=== PATIENT | male | born 1930 | race Caucasian/White ===

== ENCOUNTER 2016-02-27 20:46 | Inpatient (IN) | payer MEDICARE ==
[2016-02-27] MEDS ORDERED: SODIUM CHLORIDE 0.9% 1,000 ML IV STA (20:54)
[2016-02-27] MEDS ORDERED: SODIUM CHLORIDE 0.9% 500 ML IV STA (20:54)
[2016-02-27 21:18] LABS: Basophils % (A) 1 %; CH 29.5; CHCM 30.9; Eosinophils # (A) 0.1 k/uL (0-0.7); Eosinophils % (A) 2 %; HDW 3.22; Hypochromasia Marked; Luc # (Auto) 0.08; Luc % (Auto) 2; Lymphocytes # (A) 0.6 k/uL (1.0-4.8); Lymphocytes % (A) 15 %; MCH 29.3 pg (25.0-35.0); MCHC 30.6 g/dL (31.0-37.0); MCV 95.7 fL (80.0-100.0); Mean Platelet Volume 8.9; Monocytes # (A) 0.3 k/uL (0-1.0); Monocytes % (A) 7 %; Neutrophils # (A) 2.7 k/uL (1.3-7.7); Neutrophils % (A) 73 %; RBC 2.19 m/uL (4.30-5.90); RDW 15.5 % (11.5-15.5); WBC 3.7 k/uL (3.8-10.6); WBC (Perox) 3.84
[2016-02-27 21:20] LABS: HGB 6.4 gm/dL (13.0-17.5); Magnesium 2.3 mg/dL (1.6-2.3); Potassium 5.5 mmol/L (3.5-5.1); Total Bilirubin 0.2 mg/dL (0.2-1.3); Total Protein 5.6 g/dL (6.3-8.2)
[2016-02-27 21:33] LABS: Creatine Kinase <20 U/L (55-170)
[2016-02-27 21:50] LABS: Troponin I 0.124 ng/mL (0.000-0.034)
--- NOTE | 2016-02-27 22:09 | ED ---
Recheck HPI - General Chief Complaint: Recheck/Abnormal Lab/Rx Stated Complaint: Abnormal Labs Time Seen by Provider: 02/27/16 20:53 Source: EMS Mode of arrival: EMS Limitations: no limitations - History of Present Illness Initial Comments: Assessment from a local detention with the very low hemoglobin is hemoglobin is 6.2 today unfortunately we don't have any records of him and are electronic medical records and didn't receive or bulge of information from the detention either except his medication list his medication list includes aspirin and Plavix is a question of him being on Coumadin as well, he had his hemoglobin done twice today when earlier today and once in the hospital. He himself denies any symptoms he denies any headaches he is legally blind but his heels alert oriented able to answer questions via system negative for any headaches no chest pain or shortness of breath or abdominal pain no frequency urgency dysuria he does have a indwelling Prajapati catheter - Related Data Home Medications Medication Instructions Recorded Confirmed Acetaminophen Tab [Tylenol Tab] 650 mg PO Q4H PRN 02/27/16 02/27/16 Allopurinol [Zyloprim] 100 mg PO DAILY 02/27/16 02/27/16 Aspirin [Adult Low Dose Aspirin EC] 81 mg PO DAILY 02/27/16 02/27/16 Atorvastatin [Lipitor] 20 mg PO HS 02/27/16 02/27/16 Cholecalciferol (Vitamin D3) 10,000 unit PO MOFR 02/27/16 02/27/16 [Vitamin D3] Clopidogrel [Plavix] 75 mg PO DAILY 02/27/16 02/27/16 Ensure Clear 1 can PO TID-W/MEALS 02/27/16 02/27/16 Ferrous Sulfate Tablet 27mg 27 mg PO DAILY 02/27/16 02/27/16 HYDROcodone/APAP 5-325MG [[place] 1 tab PO TID PRN 02/27/16 02/27/16 5-325] Ipratropium-Albuterol Nebulize 3 ml INHALATION RT-Q4H PRN 02/27/16 02/27/16 [Duoneb 0.5 mg-3 mg/3 ml Soln] Lactulose 10 gm PO DAILY PRN 02/27/16 02/27/16 Nitroglycerin Sl Tabs [Nitrostat] 0.4 mg SUBLINGUAL Q5M PRN 02/27/16 02/27/16 Sevelamer [Renvela] 800 mg PO AC-TID 02/27/16 02/27/16 Tamsulosin [Flomax] 0.4 mg PO HS 02/27/16 02/27/16 Torsemide [Demadex] 40 mg PO DAILY 02/27/16 02/27/16 Triad Cream 1 applic TOPICAL HS PRN 02/27/16 02/27/16 rOPINIRole HCL [Requip] 1 mg PO HS 02/27/16 02/27/16 Allergies Allergy/AdvReac Type Severity Reaction Status Date / Time No Known Allergies Allergy Verified 02/27/16 21:03 Review of Systems ROS Statement: Those systems with pertinent positive or pertinent negative responses have been documented in the HPI. ROS Other: All systems not noted in ROS Statement are negative. Past Medical History Past Medical History: Hyperlipidemia, Vascular Disorder Additional Past Medical History / Comment(s): kidney disease, pressure ulcer stage 2-coccyx, generalized weakness, legally blind History of Any Multi-Drug Resistant Organisms: Unobtainable Past Surgical History: Unable to Obtain Past Psychological History: No Psychological Hx Reported Smoking Status: Current some day smoker Past Alcohol Use History: None Reported Past Drug Use History: None Reported General Exam - General Exam Comments Initial Comments: General: The patient is awake and alert, in no distress, GCS is 15 Skin: Skin is warm and dry and no rashes or lesions are noted. Eye: Extraocular muscles are intact Ears, nose, mouth and throat: There are moist mucous membranes and no oral lesions. Neck: The neck is supple, there is no tenderness or JVD. Cardiovascular: There is a regular rate and rhythm. No murmur, rub or gallop is appreciated. Respiratory: To auscultation bilateral, decreased breath sounds at the bases Gastrointestinal: Soft, non-distended, non-tender abdomen without masses or organomegaly noted. There is no rebound or guarding present. Bowel sounds are unremarkable. Rectal exam was done, he has a dressing on his sacrococcygeal area for his chronic ulcer of blood was noticed did notice some stool in the rectum Back: There is no tenderness to palpation in the midline. There is no obvious deformity. Musculoskeletal: Normal ROM, no tenderness, There is no pedal edema. There is no calf tenderness or swelling. No cords were appreciated. Neurological: CN II-XII intact, Cranial nerves III through XII are intact. There are no obvious motor or sensory deficits. Coordination appears grossly intact. Speech is normal. Psychiatric: Cooperative, appropriate mood & affect, normal judgment. Limitations: no limitations Course Vital Signs 02/27/16 02/27/16 02/27/16 20:48 22:30 23:06 Temperature 98.1 F 98.7 F Pulse Rate 80 84 83 Respiratory 18 18 18 Rate Blood Pressure 160/70 142/63 144/67 O2 Sat by Pulse 98 99 97 Oximetry 02/27/16 23:18 Temperature 98.1 F Pulse Rate 84 Respiratory 18 Rate Blood Pressure 148/69 O2 Sat by Pulse 97 Oximetry EKG is normal sinus rhythm ventricular rate is 82 HI interval is 190 QRS duration is 88 QT/QTc is 386/450. This EKG shows T-wave inversion in lead 1 to aVL and a T-wave inversion in V5 and V6 Medical Decision Making - Lab Data Result diagrams: 02/27/16 21:00 02/27/16 21:00 Lab Results 02/27/16 02/27/16 02/27/16 Range/Units 21:00 21:00 21:00 WBC 3.7 L (3.8-10.6) k/uL RBC 2.19 L (4.30-5.90) m/uL Hgb 6.4 L* (13.0-17.5) gm/dL Hct 21.0 L (39.0-53.0) % MCV 95.7 (80.0-100.0) fL MCH 29.3 (25.0-35.0) pg MCHC 30.6 L (31.0-37.0) g/dL RDW 15.5 (11.5-15.5) % Plt Count 208 (150-450) k/uL Neutrophils % 73 % Lymphocytes % 15 % Monocytes % 7 % Eosinophils % 2 % Basophils % 1 % Neutrophils # 2.7 (1.3-7.7) k/uL Lymphocytes # 0.6 L (1.0-4.8) k/uL Monocytes # 0.3 (0-1.0) k/uL Eosinophils # 0.1 (0-0.7) k/uL Basophils # 0.0 (0-0.2) k/uL Hypochromasia Marked APTT (22.0-30.0) sec Sodium 140 (137-145) mmol/L Potassium 5.5 H (3.5-5.1) mmol/L Chloride 104 (98-107) mmol/L Carbon Dioxide 26 (22-30) mmol/L Anion Gap 10 mmol/L BUN 119 H* (9-20) mg/dL Creatinine 4.04 H (0.66-1.25) mg/dL Est GFR (MDRD) Af Amer 17 (>60 ml/min/1.73 sqM) Est GFR (MDRD) Non-Af 14 (>60 ml/min/1.73 sqM) Glucose 166 H (74-99) mg/dL Calcium 8.0 L (8.4-10.2) mg/dL Magnesium 2.3 (1.6-2.3) mg/dL Total Bilirubin 0.2 (0.2-1.3) mg/dL AST 11 L (17-59) U/L ALT 27 (21-72) U/L Alkaline Phosphatase 59 (38-126) U/L Total Creatine Kinase <20 L (55-170) U/L CK-MB (CK-2) 1.0 (0.0-2.4) ng/mL CK-MB (CK-2) Rel Index 0.0 Troponin I 0.124 H* (0.000-0.034) ng/mL Total Protein 5.6 L (6.3-8.2) g/dL Albumin 2.6 L (3.5-5.0) g/dL Lipase 17 L (23-300) U/L Stool Occult Blood (Negative) Blood Type Blood Type Confirm Blood Type Recheck Antibody Screen Crossmatch Spec Expiration Date 02/27/16 02/27/16 02/27/16 Range/Units 21:00 21:00 21:08 WBC (3.8-10.6) k/uL RBC (4.30-5.90) m/uL Hgb (13.0-17.5) gm/dL Hct (39.0-53.0) % MCV (80.0-100.0) fL MCH (25.0-35.0) pg MCHC (31.0-37.0) g/dL RDW (11.5-15.5) % Plt Count (150-450) k/uL Neutrophils % % Lymphocytes % % Monocytes % % Eosinophils % % Basophils % % Neutrophils # (1.3-7.7) k/uL Lymphocytes # (1.0-4.8) k/uL Monocytes # (0-1.0) k/uL Eosinophils # (0-0.7) k/uL Basophils # (0-0.2) k/uL Hypochromasia APTT 22.2 (22.0-30.0) sec Sodium (137-145) mmol/L Potassium (3.5-5.1) mmol/L Chloride (98-107) mmol/L Carbon Dioxide (22-30) mmol/L Anion Gap mmol/L BUN (9-20) mg/dL Creatinine (0.66-1.25) mg/dL Est GFR (MDRD) Af Amer (>60 ml/min/1.73 sqM) Est GFR (MDRD) Non-Af (>60 ml/min/1.73 sqM) Glucose (74-99) mg/dL Calcium (8.4-10.2) mg/dL Magnesium (1.6-2.3) mg/dL Total Bilirubin (0.2-1.3) mg/dL AST (17-59) U/L ALT (21-72) U/L Alkaline Phosphatase (38-126) U/L Total Creatine Kinase (55-170) U/L CK-MB (CK-2) (0.0-2.4) ng/mL CK-MB (CK-2) Rel Index Troponin I (0.000-0.034) ng/mL Total Protein (6.3-8.2) g/dL Albumin (3.5-5.0) g/dL Lipase (23-300) U/L Stool Occult Blood Negative (Negative) Blood Type A Positive Blood Type Confirm Blood Type Recheck CABO Indicated Antibody Screen NEGATIVE Crossmatch See Detail Spec Expiration Date 03/01/2016 - 229902/27/16 Range/Units 22:09 WBC (3.8-10.6) k/uL RBC (4.30-5.90) m/uL Hgb (13.0-17.5) gm/dL Hct (39.0-53.0) % MCV (80.0-100.0) fL MCH (25.0-35.0) pg MCHC (31.0-37.0) g/dL RDW (11.5-15.5) % Plt Count (150-450) k/uL Neutrophils % % Lymphocytes % % Monocytes % % Eosinophils % % Basophils % % Neutrophils # (1.3-7.7) k/uL Lymphocytes # (1.0-4.8) k/uL Monocytes # (0-1.0) k/uL Eosinophils # (0-0.7) k/uL Basophils # (0-0.2) k/uL Hypochromasia APTT (22.0-30.0) sec Sodium (137-145) mmol/L Potassium (3.5-5.1) mmol/L Chloride (98-107) mmol/L Carbon Dioxide (22-30) mmol/L Anion Gap mmol/L BUN (9-20) mg/dL Creatinine (0.66-1.25) mg/dL Est GFR (MDRD) Af Amer (>60 ml/min/1.73 sqM) Est GFR (MDRD) Non-Af (>60 ml/min/1.73 sqM) Glucose (74-99) mg/dL Calcium (8.4-10.2) mg/dL Magnesium (1.6-2.3) mg/dL Total Bilirubin (0.2-1.3) mg/dL AST (17-59) U/L ALT (21-72) U/L Alkaline Phosphatase (38-126) U/L Total Creatine Kinase (55-170) U/L CK-MB (CK-2) (0.0-2.4) ng/mL CK-MB (CK-2) Rel Index Troponin I (0.000-0.034) ng/mL Total Protein (6.3-8.2) g/dL Albumin (3.5-5.0) g/dL Lipase (23-300) U/L Stool Occult Blood (Negative) Blood Type Blood Type Confirm A Positive Blood Type Recheck Antibody Screen Crossmatch Spec Expiration Date Disposition Clinical Impression: Symptomatic anemia, Myocardial infarction, Renal failure, Hyperkalemia Disposition: ADMITTED IP TO THIS [facility] Condition: Poor Referrals: Todd Ackerman MD [Primary Care Provider] - 1-2 days
[2016-02-27] MEDS ORDERED: MORPHINE SULFATE 2 MG/ML SYRINGE IVP PRN (23:36)
[2016-02-27] MEDS ORDERED: NITROGLYCERIN SL TABS 0.4 MG TAB SUBLINGUAL PRN (23:36)
[2016-02-27] MEDS ORDERED: IPRATROPIUM-ALBUTEROL 3 ML NEB INHALATION PRN (23:43)
[2016-02-27] MEDS ORDERED: ACETAMINOPHEN TAB 325 MG TAB PO PRN (23:43)
[2016-02-27] MEDS ORDERED: LACTULOSE 20 GM/30 ML CUP PO PRN (23:43)
[2016-02-27] MEDS ORDERED: ZINC OXIDE 20% OINT 28.4 GM TUBE TOPICAL PRN (23:43)
--- NOTE | 2016-02-28 00:05 | XR ---
EXAMINATION TYPE: XR chest 1V portable DATE OF EXAM: 02/27/2016 11:52 PM COMPARISON: 02/20/2016 HISTORY: Chest pain TECHNIQUE: Single frontal view of the chest is obtained. FINDINGS: Heart is enlarged. There is blunting of right costophrenic angle and consolidation at the right lung base. There is mild pulmonary vascular congestion. There are no definite hilar masses. Bon y thorax appears intact. IMPRESSION: Mild congestive heart failure with right pleural effusion and right lower lobe pneumonia . This appears new compared to last exam.
[2016-02-28] MEDS ORDERED: NON-FORMULARY DRUG (Ensure Clear 1 CAN) PO SCH (07:30)
[2016-02-28 07:48] LABS: Cholesterol 104 mg/dL (<200); HDL Cholesterol 42 mg/dL (40-60); Triglycerides 112 mg/dL (<150)
[2016-02-28 07:57] LABS: Creatine Kinase <20 U/L (55-170)
[2016-02-28 08:10] LABS: Creatine Kinase MB 0.9 ng/mL (0.0-2.4)
[2016-02-28 08:18] LABS: Troponin I 0.112 ng/mL (0.000-0.034)
[2016-02-28 08:24] LABS: Calcium 8.3 mg/dL (8.4-10.2); Potassium 5.6 mmol/L (3.5-5.1)
[2016-02-28 08:33] LABS: Anisocytosis Slight; CH 29.8; HCT 27.1 % (39.0-53.0); HDW 3.87; Hypochromasia Moderate; MCH 29.5 pg (25.0-35.0); MCHC 31.4 g/dL (31.0-37.0); MCV 93.9 fL (80.0-100.0); Mean Platelet Volume 8.1; Poikilocytosis Slight; RBC 2.89 m/uL (4.30-5.90); RDW 16.5 % (11.5-15.5)
[2016-02-28 08:40] LABS: HGB 8.5 gm/dL (13.0-17.5)
[2016-02-28] MEDS ORDERED: FERROUS SULFATE 325 MG TAB PO SCH (09:00)
[2016-02-28] MEDS ORDERED: ASPIRIN 325 MG TAB PO SCH (09:00)
[2016-02-28] MEDS: SEVELAMER 800 MG TAB PO SCH ×3 (09:14→17:25)
[2016-02-28] MEDS: HYDROcodone/APAP 5-325MG 1 EACH TAB PO PRN ×2 (09:14→17:23)
[2016-02-28] MEDS: METOPROLOL TARTRATE 25 MG TAB PO SCH ×2 (09:14→21:04)
--- NOTE | 2016-02-28 09:32 | P.CRDCN ---
History of Present Illness Consult date: 02/28/16 Chief complaint: Weakness History of present illness: This is a pleasant 86-year-old gentleman who is blind and lives in assisted living with a past medical history significant for carotid disease, hypertension , and dyslipidemia was brought to the emergency room because he was feeling weak. Lately the patient has been falling a lot but he never lost consciousness. He did not experience any symptoms of chest pain or chest discomfort or difficulty breathing or heart racing or fluttering. In the ER the patient was found to be severely anemic with a hemoglobin around 6 where he received 2 units of packed RBC with significant improvement in the hemoglobin. Beside that he was found to be in acute renal failure. The patient was receiving dual antiplatelet therapy with aspirin and Plavix as an outpatient and I think that is because of the carotid artery disease. Overall he is feeling better now. The Plavix was stopped which I would agree. Currently he is on aspirin, statin, on beta maylin. I will obtain an echocardiogram to assess the LV function. The cardiac enzymes were checked and came in to be slightly abnormal and also the EKG showed sinus rhythm with T- wave inversion in the lateral leads. The EKG changes are likely ischemic but that secondary to the severity anemia. Overall the patient is not a candidate to have invasive approach. I would consider medical treatment and follow-up with him. Past Medical History Past Medical History: Hyperlipidemia, Vascular Disorder Additional Past Medical History / Comment(s): kidney disease, pressure ulcer stage 2-coccyx, generalized weakness, legally blind History of Any Multi-Drug Resistant Organisms: Unobtainable Past Surgical History: Unable to Obtain Past Anesthesia/Blood Transfusion Reactions: No Reported Reaction Past Psychological History: No Psychological Hx Reported Smoking Status: Current some day smoker Past Alcohol Use History: None Reported Past Drug Use History: None Reported Medications and Allergies Home Medications Medication Instructions Recorded Confirmed Type Acetaminophen Tab [Tylenol Tab] 650 mg PO Q4H PRN 02/27/16 02/27/16 History Allopurinol [Zyloprim] 100 mg PO DAILY 02/27/16 02/27/16 History Aspirin [Adult Low Dose Aspirin EC] 81 mg PO DAILY 02/27/16 02/27/16 History Atorvastatin [Lipitor] 20 mg PO HS 02/27/16 02/27/16 History Cholecalciferol (Vitamin D3) 10,000 unit PO MOFR 02/27/16 02/27/16 History [Vitamin D3] Clopidogrel [Plavix] 75 mg PO DAILY 02/27/16 02/27/16 History Ensure Clear 1 can PO TID-W/MEALS 02/27/16 02/27/16 History Ferrous Sulfate Tablet 27mg 27 mg PO DAILY 02/27/16 02/27/16 History HYDROcodone/APAP 5-325MG [[place] 1 tab PO TID PRN 02/27/16 02/27/16 History 5-325] Ipratropium-Albuterol Nebulize 3 ml INHALATION RT-Q4H PRN 02/27/16 02/27/16 History [Duoneb 0.5 mg-3 mg/3 ml Soln] Lactulose 10 gm PO DAILY PRN 02/27/16 02/27/16 History Nitroglycerin Sl Tabs [Nitrostat] 0.4 mg SUBLINGUAL Q5M PRN 02/27/16 02/27/16 History Sevelamer [Renvela] 800 mg PO AC-TID 02/27/16 02/27/16 History Tamsulosin [Flomax] 0.4 mg PO HS 02/27/16 02/27/16 History Torsemide [Demadex] 40 mg PO DAILY 02/27/16 02/27/16 History Triad Cream 1 applic TOPICAL HS PRN 02/27/16 02/27/16 History rOPINIRole HCL [Requip] 1 mg PO HS 02/27/16 02/27/16 History Allergies Allergy/AdvReac Type Severity Reaction Status Date / Time No Known Allergies Allergy Verified 02/27/16 21:03 Physical Exam Vitals: Vital Signs Temp Pulse Pulse Resp BP BP Pulse Ox 02/28/16 08:00 98.5 F 92 164/77 92 L 02/28/16 03:48 98.2 F 81 18 155/66 99 02/28/16 03:09 98.0 F 80 16 155/68 99 02/28/16 02:39 98.0 F 79 16 157/70 98 02/28/16 02:29 98.0 F 80 16 157/69 98 02/28/16 02:06 98.0 F 79 16 157/69 99 02/28/16 00:24 76 16 138/65 98 02/28/16 00:05 98.0 F 77 18 138/65 99 02/27/16 23:48 97.8 F 78 18 149/63 96 02/27/16 23:18 98.1 F 84 18 148/69 97 Intake and Output 02/27/16 02/28/16 02/28/16 22:59 06:59 14:59 Intake Total 620 Balance 620 Intake: Blood Product 620 Rc As-1 Unit 310 [id number] Rc As-1 Unit 310 [id number] Other: Voiding Method Indwelling Catheter Weight 63.503 kg - Constitutional General appearance: no acute distress - Respiratory Respiratory: bilateral: diminished - Cardiovascular Rhythm: regular Heart sounds: normal: S1, S2 Results 02/28/16 07:20 02/28/16 07:20 Cardiac Enzymes 02/28/16 Range/Units 07:20 CK-MB (CK-2) 0.9 (0.0-2.4) ng/mL Troponin I 0.112 H* (0.000-0.034) ng/mL Lipids 02/28/16 Range/Units 07:20 Triglycerides 112 (<150) mg/dL Cholesterol 104 (<200) mg/dL HDL Cholesterol 42 (40-60) mg/dL CBC 02/28/16 Range/Units 07:20 WBC 4.0 (3.8-10.6) k/uL RBC 2.89 L (4.30-5.90) m/uL Hgb 8.5 L D (13.0-17.5) gm/dL Hct 27.1 L (39.0-53.0) % Plt Count 206 (150-450) k/uL Comprehensive Metabolic Panel 02/28/16 Range/Units 07:20 Sodium 143 (137-145) mmol/L Potassium 5.6 H (3.5-5.1) mmol/L Chloride 110 H (98-107) mmol/L Carbon Dioxide 23 (22-30) mmol/L BUN 119 H* (9-20) mg/dL Creatinine 3.74 H (0.66-1.25) mg/dL Glucose 93 (74-99) mg/dL Calcium 8.3 L (8.4-10.2) mg/dL Current Medications Generic Name Dose Route Start Last Admin Trade Name Freq PRN Reason Stop Dose Admin Acetaminophen 650 mg 02/27/16 23:43 Tylenol Tab PO Q4H PRN Mild Pain Acetaminophen/Hydrocodone [place]art 1 each 02/27/16 23:43 02/28/16 09:14 [place] 5-325 PO 1 each TID PRN Administration Moderate-Severe Pain Albuterol/Ipratropium 3 ml 02/27/16 23:43 Duoneb 0.5 Mg-3 Mg/3 Ml Soln INHALATION RT-Q4H PRN Shortness Of Breath Aspirin 325 mg 02/28/16 09:00 02/28/16 09:14 Aspirin PO 325 mg DAILY [facility] Administration Atorvastatin Calcium 40 mg 02/28/16 21:00 Lipitor PO HS [facility] Cholecalciferol 10,000 unit 03/02/16 09:00 Vitamin D3 PO MoFr@0900 [facility] Ferrous Sulfate 162.5 mg 02/28/16 09:00 02/28/16 09:14 Feosol PO 162.5 mg DAILY [facility] Administration Lactulose 10 gm 02/27/16 23:43 Cephulac PO DAILY PRN Constipation Metoprolol Tartrate 25 mg 02/28/16 09:00 02/28/16 09:14 Lopressor PO 25 mg BID [facility] Administration Morphine Sulfate 2 mg 02/27/16 23:36 Morphine Sulfate (Inj) IVP Q5M PRN Chest Pain Multi-Ingredient Ointment 1 applic 02/27/16 23:43 Zinc Oxide 20% Oint TOPICAL HS PRN [facility] Nitroglycerin 0.4 mg 02/27/16 23:36 Nitrostat SUBLINGUAL Q5M PRN Chest Pain Ropinirole HCl 1 mg 02/28/16 21:00 Requip PO HS [facility] Sevelamer Carbonate 800 mg 02/28/16 07:30 02/28/16 09:14 Renvela PO 800 mg AC-TID [facility] Administration Tamsulosin HCl 0.4 mg 02/28/16 21:00 Flomax PO HS [facility] Intake and Output 02/27/16 02/28/16 02/28/16 22:59 06:59 14:59 Intake Total 620 Balance 620 Intake: Blood Product 620 Rc As-1 Unit 310 [id number] Rc As-1 Unit 310 [id number] Other: Voiding Method Indwelling Catheter Weight 63.503 kg 02/28/16 07:20 02/28/16 07:20 Assessment and Plan Plan: Assessment #1 severe anemia #2 acute renal failure #3 acute nondistended secondary to the anemia #4 severity carotid artery disease #5 multiple comorbid conditions you Plan #1 agree about the aspirin, statin, beta maylin #2 conservative medical approach for this gentleman #3 obtain an echocardiogram was Doppler #4 monitor the hemoglobin and kidney function #5 follow-up with the patient
--- NOTE | 2016-02-28 11:48 | P.CONS ---
History of Present Illness - Reason for Consult Consult date: 02/28/16 anemia possible GI bleed Requesting physician: Solo Mcginnis - History of Present Illness 86-year-old gentleman patient Dr. Ackerman with a past medical history of chronic kidney disease, legally blind, hyperlipidemia, carotid disease; aspirin Plavix therapy, and nicotine cigarette dependency. Admitted from [facility] with weakness and recent falling. Hemoglobin 6.4. MCV 95. Platelet 208. PTT 22. BUN 119. Creatinine 4.0. Transfuse 2 units repeat hemoglobin 8.5. No overt bleeding such as hematemesis, hematochezia, or melena. Patient intubated EGD colonoscopy in the past with been more than 5 years. Other than aspirin and Plavix he does not take any additional antiplatelet or NSAID medications. Patient is blind therefore he cannot state if his bowel movements are black or red. Denies vomiting, fever, or chills. Review of Systems All systems: negative (See HPI) Past Medical History Past Medical History: Hyperlipidemia, Vascular Disorder Additional Past Medical History / Comment(s): kidney disease, pressure ulcer stage 2-coccyx, generalized weakness, legally blind History of Any Multi-Drug Resistant Organisms: Unobtainable Past Surgical History: Unable to Obtain Past Anesthesia/Blood Transfusion Reactions: No Reported Reaction Past Psychological History: No Psychological Hx Reported Smoking Status: Current some day smoker Past Alcohol Use History: None Reported Past Drug Use History: None Reported Medications and Allergies Home Medications Medication Instructions Recorded Confirmed Type Acetaminophen Tab [Tylenol Tab] 650 mg PO Q4H PRN 02/27/16 02/27/16 History Allopurinol [Zyloprim] 100 mg PO DAILY 02/27/16 02/27/16 History Aspirin [Adult Low Dose Aspirin EC] 81 mg PO DAILY 02/27/16 02/27/16 History Atorvastatin [Lipitor] 20 mg PO HS 02/27/16 02/27/16 History Cholecalciferol (Vitamin D3) 10,000 unit PO MOFR 02/27/16 02/27/16 History [Vitamin D3] Clopidogrel [Plavix] 75 mg PO DAILY 02/27/16 02/27/16 History Ensure Clear 1 can PO TID-W/MEALS 02/27/16 02/27/16 History Ferrous Sulfate Tablet 27mg 27 mg PO DAILY 02/27/16 02/27/16 History HYDROcodone/APAP 5-325MG [[place] 1 tab PO TID PRN 02/27/16 02/27/16 History 5-325] Ipratropium-Albuterol Nebulize 3 ml INHALATION RT-Q4H PRN 02/27/16 02/27/16 History [Duoneb 0.5 mg-3 mg/3 ml Soln] Lactulose 10 gm PO DAILY PRN 02/27/16 02/27/16 History Nitroglycerin Sl Tabs [Nitrostat] 0.4 mg SUBLINGUAL Q5M PRN 02/27/16 02/27/16 History Sevelamer [Renvela] 800 mg PO AC-TID 02/27/16 02/27/16 History Tamsulosin [Flomax] 0.4 mg PO HS 02/27/16 02/27/16 History Torsemide [Demadex] 40 mg PO DAILY 02/27/16 02/27/16 History Triad Cream 1 applic TOPICAL HS PRN 02/27/16 02/27/16 History rOPINIRole HCL [Requip] 1 mg PO HS 02/27/16 02/27/16 History Allergies Allergy/AdvReac Type Severity Reaction Status Date / Time No Known Allergies Allergy Verified 02/27/16 21:03 Physical Exam Vitals: Vital Signs Temp Pulse Pulse Resp BP BP Pulse Ox 02/28/16 08:00 98.5 F 92 164/77 92 L 02/28/16 03:48 98.2 F 81 18 155/66 99 02/28/16 03:09 98.0 F 80 16 155/68 99 02/28/16 02:39 98.0 F 79 16 157/70 98 02/28/16 02:29 98.0 F 80 16 157/69 98 02/28/16 02:06 98.0 F 79 16 157/69 99 02/28/16 00:24 76 16 138/65 98 02/28/16 00:05 98.0 F 77 18 138/65 99 02/27/16 23:48 97.8 F 78 18 149/63 96 02/27/16 23:18 98.1 F 84 18 148/69 97 Intake and Output 02/27/16 02/28/16 02/28/16 22:59 06:59 14:59 Intake Total 620 Balance 620 Intake: Blood Product 620 Rc As-1 Unit 310 [id number] As-1 Unit 310 [id number] Other: Voiding Method Indwelling Catheter Indwelling Catheter Weight 63.503 kg General appearance: The patient is alert, oriented, in no acute distress. Legally blind. HET: Head is normocephalic and atraumatic. Pupils are equal and reactive. Oropharynx is clear without lesions. Neck: Supple without lymphadenopathy. Trachea midline. Heart: S1 S2. Regular rate and rhythm. Lungs: No crackles or wheezes are heard. Abdomen: Soft, nontender, nondistended with bowel sounds. No peritoneal signs. No palpable organomegaly or masses. Extremities: Normal skin color and turgor. No cyanosis, rash, ulceration, clubbing, or edema. Radial and pedal pulses are 2/4 bilaterally. Prajapati clear yellow urine. Neurological: No focal deficits. Strength and sensation are grossly intact. Results CBC & Chem 7: 02/28/16 07:20 02/28/16 07:20 Labs: Abnormal Lab Results - Last 24 Hours (Table) 02/28/16 02/28/16 02/28/16 Range/Units 07:20 07:20 07:20 RBC 2.89 L (4.30-5.90) m/uL Hgb 8.5 L D (13.0-17.5) gm/dL Hct 27.1 L (39.0-53.0) % RDW 16.5 H (11.5-15.5) % Potassium 5.6 H (3.5-5.1) mmol/L Chloride 110 H (98-107) mmol/L BUN 119 H* (9-20) mg/dL Creatinine 3.74 H (0.66-1.25) mg/dL Calcium 8.3 L (8.4-10.2) mg/dL Total Creatine Kinase <20 L (55-170) U/L Troponin I 0.112 H* (0.000-0.034) ng/mL Assessment and Plan Plan: Impression: 1. 86-year-old gentleman with underlying chronic kidney disease admitted with symptomatic anemia with weakness and recent falls hemoglobin 6.4 Hemoccult- negative stool without overt signs or symptoms of bleeding rule out occult GI loss. 2. Acute on chronic anemia possible acute blood loss. 3. Legally blind. Plan: 1. Patient is DO NOT RESUSCITATE and would like to proceed with recommended procedures. Advised EGD colonoscopy; will plan for . Continue to monitor CBC, continue GI prophylaxis. Hold iron supplementation for endoscopic procedures. May proceed with aspirin therapy as long as patient does not develop acute GI bleeding. We'll start bowel prep tomorrow afternoon. The general agent has discussed the risks, benefits and alternative therapies for the above-mentioned procedure and for both sedation/analgesia as well as necessary blood product administration, if indicated, as they pertain to this patient. The patient has indicated understanding and acceptance of the risks and procedures discussed. Thank you for this kind referral and the opportunity to participate in the care of your patient. This consultation was discussed with Dr. Alejandro. The impression and plan of care have been directed as dictated.
[2016-02-28] MEDS: ALLOPURINOL 100 MG TAB PO SCH (13:03)
[2016-02-28] MEDS: TORSEMIDE 20 MG TAB PO SCH (13:03)
--- NOTE | 2016-02-28 13:32 | P.NPCON ---
History of Present Illness - Reason for Consult Consult date: 02/28/16 acute renal failure - Chief Complaint Acute kidney injury - History of Present Illness This is an 86-year-old custodial resident who was brought in because of low hemoglobin and worsening creatinine. He is not aware of any previous kidney disease. He isn't a poor historian although he is able to give me a fair amount of information but his memory is not very reliable. He denies any complaints. Denies any fever chills cough shortness of breath nausea vomiting diarrhea. He does admit to having lost his appetite over the last several months. He is mostly bedridden for several months. Is unable to me how long he has been in the custodial. There is no knowledge of him being on any nonsteroidals Bactrim or any other nephrotoxic medications On admission his hemoglobin was 6.4 white count 3780 count 28,000, sodium 140, 5.5, 104, 96 BUN was 119 and creatinine is 4.04 calcium is 8. He has a Prajapati catheter and he has made 620 mL of urine so far in the ER. His creatinine also has improved 3.74 within a few hours in the ER. Past Medical History Past Medical History: Hyperlipidemia, Vascular Disorder Additional Past Medical History / Comment(s): kidney disease, pressure ulcer stage 2-coccyx, generalized weakness, legally blind History of Any Multi-Drug Resistant Organisms: Unobtainable Past Surgical History: Unable to Obtain Past Anesthesia/Blood Transfusion Reactions: No Reported Reaction Past Psychological History: No Psychological Hx Reported Smoking Status: Current some day smoker Past Alcohol Use History: None Reported Past Drug Use History: None Reported Medications and Allergies Home Medications Medication Instructions Recorded Confirmed Type Acetaminophen Tab [Tylenol Tab] 650 mg PO Q4H PRN 02/27/16 02/27/16 History Allopurinol [Zyloprim] 100 mg PO DAILY 02/27/16 02/27/16 History Aspirin [Adult Low Dose Aspirin EC] 81 mg PO DAILY 02/27/16 02/27/16 History Atorvastatin [Lipitor] 20 mg PO HS 02/27/16 02/27/16 History Cholecalciferol (Vitamin D3) 10,000 unit PO MOFR 02/27/16 02/27/16 History [Vitamin D3] Clopidogrel [Plavix] 75 mg PO DAILY 02/27/16 02/27/16 History Ensure Clear 1 can PO TID-W/MEALS 02/27/16 02/27/16 History Ferrous Sulfate Tablet 27mg 27 mg PO DAILY 02/27/16 02/27/16 History HYDROcodone/APAP 5-325MG [[place] 1 tab PO TID PRN 02/27/16 02/27/16 History 5-325] Ipratropium-Albuterol Nebulize 3 ml INHALATION RT-Q4H PRN 02/27/16 02/27/16 History [Duoneb 0.5 mg-3 mg/3 ml Soln] Lactulose 10 gm PO DAILY PRN 02/27/16 02/27/16 History Nitroglycerin Sl Tabs [Nitrostat] 0.4 mg SUBLINGUAL Q5M PRN 02/27/16 02/27/16 History Sevelamer [Renvela] 800 mg PO AC-TID 02/27/16 02/27/16 History Tamsulosin [Flomax] 0.4 mg PO HS 02/27/16 02/27/16 History Torsemide [Demadex] 40 mg PO DAILY 02/27/16 02/27/16 History Triad Cream 1 applic TOPICAL HS PRN 02/27/16 02/27/16 History rOPINIRole HCL [Requip] 1 mg PO HS 02/27/16 02/27/16 History Allergies Allergy/AdvReac Type Severity Reaction Status Date / Time No Known Allergies Allergy Verified 02/27/16 21:03 Physical Exam Vitals: Vital Signs Temp Pulse Pulse Resp BP BP Pulse Ox 02/28/16 12:00 70 148/65 95 02/28/16 08:00 98.5 F 92 164/77 92 L 02/28/16 03:48 98.2 F 81 18 155/66 99 02/28/16 03:09 98.0 F 80 16 155/68 99 02/28/16 02:39 98.0 F 79 16 157/70 98 02/28/16 02:29 98.0 F 80 16 157/69 98 02/28/16 02:06 98.0 F 79 16 157/69 99 02/28/16 00:24 76 16 138/65 98 02/28/16 00:05 98.0 F 77 18 138/65 99 02/27/16 23:48 97.8 F 78 18 149/63 96 02/27/16 23:18 98.1 F 84 18 148/69 97 Intake and Output 02/27/16 02/28/16 02/28/16 22:59 06:59 14:59 Intake Total 620 Balance 620 Intake: Blood Product 620 As-1 Unit 310 [id number] As-1 Unit 310 [id number] Other: Voiding Method Indwelling Catheter Indwelling Catheter Weight 63.503 kg On examination is awake alert oriented. HEENT exam no JVP lymphadenopathy thyromegaly no carotid bruit neck is supple no facial asymmetry No nodes in the axilla groin neck. Lungs are clear to auscultation on the right there are some coarse crackles at bases. Supposedly has had pleural effusion in the past. Heart sounds are unremarkable for any murmur rub gallop Abdomen soft nontender no organomegaly status masses Extremity exam was no edema Awake alert oriented. There is mild erythema of both his feet and loss of hair suggestive of poor circulation. Neurologically awake alert oriented. No focal motor deficit Results - Lab Results Most recent lab results Calcium 8.3 mg/dL (8.4-10.2) L 02/28/16 07:20 Magnesium 2.3 mg/dL (1.6-2.3) 02/27/16 21:00 02/28/16 07:20 02/28/16 07:20 Assessment and Plan Plan: Impression. 1. Elevated creatinine at 4 on admission no previous creatinines available likely acute kidney injury and chronic kidney disease. Cause of acute kidney injury is not clear possibly volume depletion secondary to poor intake, no documented low blood pressures. 2. Mild degree of non-gap acidosis bicarbonate 23 gap is 10. Secondary acute kidney injury. 3. Hemoglobin 6.4 severe anemia. Cause not very clear rule out GI malignancy. 3. Mild hyperkalemia secondary acute kidney injury 5. Small amount of right base effusion and possible atelectasis rule out pneumonia. Recommendation. 1. Agree with gentle hydration normal saline at 75 an hour. 2. Panculture and antibiotics. 3. Watch potassium expected to improve with IV normal saline. 4. Obtain urine analysis. 5. Obtain ultrasound of the kidney. 6. Follow labs
[2016-02-28 14:00] LABS: Creatine Kinase <20 U/L (55-170)
[2016-02-28 14:12] LABS: Creatine Kinase MB 0.8 ng/mL (0.0-2.4)
--- NOTE | 2016-02-28 15:24 | HP ---
DATE OF ADMISSION: 02/27/2016 PRESENTING COMPLAINT: Low hemoglobin. HISTORY OF PRESENTING COMPLAINT: This 86-year-old patient of Dr. Ackerman, a resident of [facility]. The patient's chronic, stable medical conditions include congestive heart failure, chronic kidney disease, diabetes mellitus type 2, hypertension, anemia of chronic disease, emphysema, ( ) peripheral artery disease, increased cholesterol. Patient was sent for hemoglobin of 6.2. Patient legally blind, not sure if he has any dark stools. Patient is being transfused blood. Denies any abdominal pain. Patient has decreased appetite, rundown. Pretty much in bed all the time he states. Patient is a smoker. REVIEW OF SYSTEMS: CONSTITUTIONAL: Tired. HEENT: Legally blind. RESPIRATORY: Baseline short of breath. CARDIOVASCULAR: None. GASTROINTESTINAL: Lower abdominal pain. GENITOURINARY: Prajapati catheter for 2 months. DERMATOLOGICAL: Stage II decubitus ulcer. HEMATOLOGICAL: As above. PSYCHIATRY: None. NEUROLOGICAL: None. Past medical history of CHF, chronic kidney disease, diabetes type 2, hypertension, anemia of chronic disease, emphysema, stage II decubitus, peripheral artery disease, hypercholesterolemia, urinary outflow obstruction with a chronic Prajapati catheter. PAST SURGICAL HISTORY: Patient does not remember. SOCIAL HISTORY: The patient smokes a 1-1/2 pack a day. Resident of the [facility]. Denies alcohol history. FAMILY HISTORY: Reviewed, noncontributory to presentation. HOME MEDICATIONS: 1. Triad cream topical q.h.s. p.r.n. 2. Tylenol 650 mg p.o. q.4 p.r.n. 3. Nitrostat 0.4 sublingual q.5 p.r.n. 4. Lactulose 10 gm p.o. daily p.r.n. 5. [place] 5 one tablet p.o. t.i.d. p.r.n. 6. Demadex 40 mg p.o. daily. 7. Renvela 800 mg p.o. a.c. t.i.d. 8. DuoNeb q.4 p.r.n. 9. Ensure 1 can p.o. t.i.d. with meals. 10. Requip 1 mg p.o. q.h.s. 11. Flomax 0.4 mg p.o. q.h.s. 12. Plavix 75 mg p.o. daily. 13. Iron 27 mg p.o. daily. 14. Vitamin D3 ten thousand units on Saturday and Saturday. 15. Lipitor 20 mg p.o. q.h.s. 16. Aspirin 81 mg p.o. daily. 17. Allopurinol 100 mg p.o. daily. On examination, vital signs on presentation: Temperature 98.1, pulse 80, respirations 18, blood pressure 160/70, pulse ox 98 on 4 L. GENERAL APPEARANCE: Thin-build, lying in bed, tired-appearing. EYES: Pupils equal. Conjunctivae are pale. HEENT: External appearance of nose and ears normal. Oral cavity normal. NECK: JVD not raised. Mass not palpable. Respiratory effort normal. LUNGS: Diminished breath sounds. CARDIOVASCULAR: First and second sounds normal. No edema. ABDOMEN: Soft, nontender. Liver and spleen not palpable. LYMPHATIC: No lymph node palpable in neck or axillae. PSYCHIATRY: Alert and oriented x3. Mood and affect normal. NEUROLOGICAL: Pupils equal. Cranial nerves grossly intact. Power and sensation grossly intact. DERMATOLOGICAL: Stage II ulcer on the lower back. INVESTIGATIONS: White count 3.7, hemoglobin 6.4, after transfusion 8.5, potassium 5.5, BUN 109, creatinine 4.04. Troponin 0.124, albumin 2.6. ASSESSMENT: 1. Acute severe anemia, rule out gastrointestinal bleed with a contribution to chronic kidney disease. 2. Chronic kidney disease, stage IV, stage from underlying nephrosclerosis. 3. Chronic congestive heart failure, ejection fraction not known. 4. Essential hypertension, chronic. 5. Anemia of chronic disease secondary to chronic kidney disease. 6. Emphysema, in a smoker. 7. Chronic nicotine dependence. Patient is an active cigarette smoker. 8. Stage II sacral decubitus ulcer. 9. Peripheral artery disease. 10. Hypercholesterolemia. 11. ( ). 12. Restless leg syndrome. PLAN: GI was consulted, we are contemplating an endoscopy, will also get a Nephrology opinion. Home medications will be resumed. Patient's troponin leak is nonsignificant with the setting of renal failure with no cardiac symptoms. The patient's antiplatelet agents will be held in view of potential GI bleed. Care was discussed with the patient.
[2016-02-28] MEDS: IPRATROPIUM-ALBUTEROL 3 ML NEB INHALATION SCH ×2 (15:36→19:22)
--- NOTE | 2016-02-28 15:49 | US ---
EXAMINATION TYPE: US renals and bladder DATE OF EXAM: 02/28/2016 3:35 PM COMPARISON: NONE CLINICAL HISTORY: LIZBETH. 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 Left Kidney: lower pole partially obscured by bowel, no hydro or masses seen. Bladder: not seen, patient has catheter Incidental note is made of gallstones Incidental note is made of left pleural effusion There is no evidence for hydronephrosis at this point in time. No masses are identified on images stephanie ed. The urinary bladder is suboptimally evaluated due to Prajapati catheter. Exam is suboptimal due to portable technique. Increased cortical echogenicity is felt present bilater ally. No gross hydronephrosis is noted. Bladder is suboptimally evaluated with Prajapati catheter in plac e. IMPRESSION: No gross hydronephrosis is evident bilaterally. Normal Values: Renal Length = 9 - 12cm Bladder Wall: < 0.3cm
[2016-02-28 16:46] LABS: Appearance,Urine Clear (Clear); Bilirubin,Urine Negative (Negative); Glucose,Urine (UA) Negative (Negative); Ketones,Urine Negative (Negative); Leukocyte Esterase,Urine Large (Negative); Mucus,Urine Rare /hpf; Nitrite,Urine Negative (Negative); Particle Count 4147; Protein,Urine Trace (Negative); RBC,Urine <1 /hpf (0-5); Specific Gravity,Urine 1.008 (1.001-1.035); Squamous Epithelial Cell,Urine <1 /hpf (0-4); UA Billing (MACRO vs. MICRO) MICRO; Urobilinogen,Urine <2.0 mg/dL (<2.0); WBC,Urine 38 /hpf (0-5)
[2016-02-28] MEDS: SODIUM CHLORIDE 0.9% 1,000 ML IV SCH (17:24)
[2016-02-28 19:58] LABS: Glucose,Whole Blood 140 mg/dL (75-99)
[2016-02-28] MEDS: INSULIN LISPRO (humaLOG) 300 UNIT/3 ML VIAL SQ SCH (21:03)
[2016-02-28] MEDS: ATORVASTATIN 40 MG TAB PO SCH (21:03)
[2016-02-28] MEDS: TAMSULOSIN 0.4 MG CAP.ER.24H PO SCH (21:04)
[2016-02-28 22:41] LABS: Hemoglobin A1C 5.1 % (4.2-6.1)
[2016-02-29] MEDS: SODIUM CHLORIDE 0.9% 1,000 ML IV SCH ×2 (05:44→11:44)
[2016-02-29 07:07] LABS: Glucose,Whole Blood 113 mg/dL (75-99)
[2016-02-29] MEDS: INSULIN LISPRO (humaLOG) 300 UNIT/3 ML VIAL SQ SCH ×4 (08:21→22:31)
[2016-02-29] MEDS: SEVELAMER 800 MG TAB PO SCH ×3 (08:22→18:00)
[2016-02-29] MEDS: METOPROLOL TARTRATE 25 MG TAB PO SCH ×2 (08:23→22:30)
[2016-02-29] MEDS: ALLOPURINOL 100 MG TAB PO SCH (08:23)
[2016-02-29] MEDS: TORSEMIDE 20 MG TAB PO SCH (08:23)
[2016-02-29] MEDS: IPRATROPIUM-ALBUTEROL 3 ML NEB INHALATION SCH ×4 (08:28→20:08)
--- NOTE | 2016-02-29 09:44 | P.PN ---
Subjective Principal diagnosis: Anemia Nursing reports no episodes of GI bleeding. Tolerating diet. Denies abdominal pain. Objective - Vital Signs Vital signs: Vital Signs Temp 98.8 F 02/29/16 07:00 Pulse 74 02/29/16 08:00 Resp 18 02/29/16 08:00 BP 146/70 02/29/16 07:00 Pulse Ox 93 L 02/29/16 07:00 Intake & Output 02/28/16 02/29/16 02/29/16 18:59 06:59 18:59 Intake Total 1065 Output Total 4600 Balance -3535 Intake: IV 825 Sodium Chloride 0.9% 1, 825 000 ml @ 75 mls/hr IV . [id number] [facility] Rx#:[id number] Oral 240 Output: Urine 4600 Uretheral (Prajapati) 2800 Other: Voiding Method Indwelling Catheter Indwelling Catheter Indwelling Catheter - Exam General appearance: The patient is alert, in no acute distress. HET: Head is normocephalic and atraumatic. Pupils are equal and reactive. Oropharynx is clear without lesions. Neck: Supple without lymphadenopathy. Trachea midline. Heart: S1 S2. Regular rate and rhythm. Lungs: No crackles or wheezes are heard. Abdomen: Soft, nontender, nondistended with bowel sounds. No peritoneal signs. No palpable organomegaly or masses. Extremities: Normal skin color and turgor. No cyanosis, rash, ulceration, clubbing, or edema. Radial and pedal pulses are 2/4 bilaterally. Neurological: No focal deficits. Strength and sensation are grossly intact. - Labs CBC & Chem 7: 02/28/16 07:20 02/28/16 07:20 Labs: Abnormal Lab Results - Last 24 Hours (Table) 02/28/16 02/28/16 02/28/16 Range/Units 13:03 16:03 19:57 POC Glucose (mg/dL) 140 H (75-99) mg/dL Total Creatine Kinase <20 L (55-170) U/L Troponin I 0.120 H* (0.000-0.034) ng/mL Urine Protein Trace H (Negative) Ur Leukocyte Esterase Large H (Negative) Urine WBC 38 H (0-5) /hpf Urine Mucus Rare H (None) /hpf 02/29/16 Range/Units 07:05 POC Glucose (mg/dL) 113 H (75-99) mg/dL Total Creatine Kinase (55-170) U/L Troponin I (0.000-0.034) ng/mL Urine Protein (Negative) Ur Leukocyte Esterase (Negative) Urine WBC (0-5) /hpf Urine Mucus (None) /hpf Microbiology - Last 24 Hours (Table) 02/28/16 16:03 Urine Culture - Preliminary Urine,Catheterized Assessment and Plan Plan: Impression: 1. 86-year-old gentleman with underlying chronic kidney disease admitted with symptomatic anemia with weakness and recent falls hemoglobin 6.4 Hemoccult- negative stool without overt signs or symptoms of bleeding rule out occult GI loss. 2. Acute on chronic anemia possible acute blood loss. 3. Legally blind. Plan: 1. EGD colonoscopy tomorrow. 2. Iron indices. Assessment and plan of care discussed with Dr. Alejandro.
[2016-02-29] MEDS: HYDROcodone/APAP 5-325MG 1 EACH TAB PO PRN ×2 (11:08→22:46)
[2016-02-29 11:41] LABS: Glucose,Whole Blood 130 mg/dL (75-99)
[2016-02-29 14:04] LABS: % Iron Saturation 36.2 % (20-50)
[2016-02-29] MEDS ORDERED: PEG 3350-NA SULF,BICARB,CL/KCL 4,000 ML BOTTLE PO ONE (15:00)
--- NOTE | 2016-02-29 15:37 | P.PN ---
Subjective Principal diagnosis: This is a 86-year-old male seen in consultation because of acute kidney injury. He has an indwelling Prajapati catheter. He came in because of anemia and worsening creatinine. A poor historian therefore his memory and history is unreliable. Yesterday he was started on IV fluids. His main 4 L of urine. I spoke to the nursing staff he confirmed that he is eating about 25-30% of meals. Patient is somewhat sleepy and reluctant to answer my questions but supposedly he is awake alert oriented 3 otherwise. Objective - Vital Signs Vital signs: Vital Signs Temp 97.9 F 02/29/16 15:00 Pulse 63 02/29/16 15:00 Resp 18 02/29/16 15:00 BP 136/67 02/29/16 15:00 Pulse Ox 95 02/29/16 15:00 Intake & Output 02/28/16 02/29/16 02/29/16 18:59 06:59 18:59 Intake Total 1065 200 Output Total 4600 Balance -3535 200 Weight 63.503 kg Intake: IV 825 Sodium Chloride 0.9% 1, 825 000 ml @ 75 mls/hr IV . [id number] [facility] Rx#:[id number] Oral 240 200 Output: Urine 4600 Uretheral (Prajapati) 2800 Other: Voiding Method Indwelling Catheter Indwelling Catheter Indwelling Catheter Examination sleepy arousable. HEENT exam no JVP neck is supple no facial asymmetry Lungs are clear to auscultation percussion fair air entry Heart sounds are unremarkable for any murmur rub gallop. Abdomen soft nontender no organomegaly status masses Extremity exam reveals no edema Neurologically sleepy therefore difficult exam but cardiac nursing staff he is awake alert oriented and has no focal motor deficit. - Labs CBC & Chem 7: 02/28/16 07:20 02/28/16 07:20 Labs: Abnormal Lab Results - Last 24 Hours (Table) 02/28/16 02/28/16 02/29/16 Range/Units 16:03 19:57 07:05 POC Glucose (mg/dL) 140 H 113 H (75-99) mg/dL Urine Protein Trace H (Negative) Ur Leukocyte Esterase Large H (Negative) Urine WBC 38 H (0-5) /hpf Urine Mucus Rare H (None) /hpf 02/29/16 Range/Units 11:40 POC Glucose (mg/dL) 130 H (75-99) mg/dL Urine Protein (Negative) Ur Leukocyte Esterase (Negative) Urine WBC (0-5) /hpf Urine Mucus (None) /hpf Microbiology - Last 24 Hours (Table) 02/28/16 16:03 Urine Culture - Preliminary Urine,Catheterized Assessment and Plan Plan: Impression. 1. Elevated creatinine at 4 on admission no previous creatinines available likely acute kidney injury and chronic kidney disease. Cause of acute kidney injury is not clear possibly volume depletion secondary to poor intake, no documented low blood pressures. He has a chronic indwelling Prajapati catheter. Today's labs are pending. A urinalysis is unremarkable except for trace proteinuria large leukocyte Estrace 38 WBCs urine culture is pending 2. Mild degree of non-gap acidosis bicarbonate 23 gap is 10. Secondary acute kidney injury. 3. Hemoglobin 6.4 severe anemia. Cause not very clear rule out GI malignancy. 3. Mild hyperkalemia secondary acute kidney injury. Potassium is 5.6 as of this morning with a blood sugar of 93 bicarb is 23 therefore this is all from acute kidney injury 5. Small amount of right base effusion and possible atelectasis rule out pneumonia. 6. Possible urinary tract infection based on UA Recommendation. 1. Agree with gentle hydration normal saline at 75 an hour. Continue Lasix to improve his potassium together with saline 2. Panculture and antibiotics. 3. Watch potassium expected to improve with IV normal saline. 4. Urine cultures are pending to rule out any urine tract infectiond of the kidney. 6. Follow labs
[2016-02-29 17:09] LABS: Glucose,Whole Blood 209 mg/dL (75-99)
[2016-02-29 20:20] LABS: Glucose,Whole Blood 120 mg/dL (75-99)
--- NOTE | 2016-02-29 21:50 | PN ---
DATE OF SERVICE: 02/29/2016 PRESENTING COMPLAINT: Anemia. INTERVAL HISTORY: This is a patient presented with severe anemia, transfused blood, felt to be primarily from underlying chronic kidney disease, GI bleed is being ruled out pending endoscopy. The patient is stable. No chest pain. Does feel tired. REVIEW OF SYSTEMS: Done for constitutional, cardiovascular, GI, pulmonary; relevant findings as above. Current medications are reviewed. On examination, temperature 97.9, pulse 60, respirations 18, blood pressure 136/67, pulse ox 95% on 2 liters. GENERAL APPEARANCE: Lying in bed, tired -appearing. EYES: Pupils equal. Conjunctivae normal. NECK: JVD not raised. Mass not palpable. RESPIRATORY: Effort normal. LUNGS: Diminished breath sounds. CARDIOVASCULAR: First and second sounds normal. No edema. ABDOMEN: Soft and nontender. Liver and spleen not palpable. PSYCHIATRY: Awake, answering simple questions. INVESTIGATIONS: No blood work from today. ASSESSMENT: 1. Acute severe anemia rule gastrointestinal bleed with a contribution of chronic kidney disease. 2. Chronic kidney disease, stage IV from underlying nephrosclerosis. 3. Chronic congestive heart failure, ejection fraction not known. 4. Essential hypertension, chronic. 5. Anemia of chronic kidney disease secondary to chronic kidney disease. 6. Emphysema, in a smoker. 7. Chronic nicotine dependence. Patient is a cigarette smoker. 8. Stage II sacral decubitus ulcer. 9. Peripheral artery disease. 10. Hypercholesterolemia. 11. Restless leg syndrome. 12. 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 PLAN: Continue current medication and treatment plan. Awaiting endoscopy. Overall prognosis guarded.
[2016-02-29] MEDS: ATORVASTATIN 40 MG TAB PO SCH (22:30)
[2016-02-29] MEDS: TAMSULOSIN 0.4 MG CAP.ER.24H PO SCH (22:30)
[2016-03-01] MEDS: IPRATROPIUM-ALBUTEROL 3 ML NEB INHALATION SCH ×4 (07:47→19:45)
[2016-03-01 08:00] LABS: Glucose,Whole Blood 84 mg/dL (75-99)
[2016-03-01 08:03] LABS: Calcium 8.2 mg/dL (8.4-10.2)
--- NOTE | 2016-03-01 08:56 | P.PN ---
Subjective Principal diagnosis: Anemia Nursing reports no episodes of GI bleeding. Patient drank entire bowel prep less than however he is still passing brown colored bowel movements. Objective - Vital Signs Vital signs: Vital Signs Temp 97.8 F 02/29/16 21:50 Pulse 74 03/01/16 07:58 Resp 16 02/29/16 21:50 BP 158/69 02/29/16 21:50 Pulse Ox 96 02/29/16 21:50 Intake & Output 02/29/16 03/01/16 03/01/16 18:59 06:59 18:59 Intake Total 200 2325 Output Total 500 Balance 200 1825 Weight 63.503 kg Intake: IV 825 Sodium Chloride 0.9% 1, 825 000 ml @ 75 mls/hr IV . [id number] [facility] Rx#:[id number] Oral 200 1500 Output: Urine 500 Uretheral (Prajapati) 500 Other: Voiding Method Indwelling Catheter Indwelling Catheter - Exam General appearance: The patient is alert, in no acute distress. HET: Head is normocephalic and atraumatic. Pupils are equal and reactive. Oropharynx is clear without lesions. Neck: Supple without lymphadenopathy. Trachea midline. Heart: S1 S2. Regular rate and rhythm. Lungs: No crackles or wheezes are heard. Abdomen: Soft, nontender, nondistended with bowel sounds. No peritoneal signs. No palpable organomegaly or masses. Extremities: Normal skin color and turgor. No cyanosis, rash, ulceration, clubbing, or edema. Radial and pedal pulses are 2/4 bilaterally. Neurological: No focal deficits. Strength and sensation are grossly intact. - Labs CBC & Chem 7: 02/28/16 07:20 03/01/16 07:24 Labs: Abnormal Lab Results - Last 24 Hours (Table) 02/29/16 02/29/16 02/29/16 Range/Units 11:40 17:08 20:19 Sodium (137-145) mmol/L Chloride (98-107) mmol/L BUN (9-20) mg/dL Creatinine (0.66-1.25) mg/dL POC Glucose (mg/dL) 130 H 209 H 120 H (75-99) mg/dL Calcium (8.4-10.2) mg/dL 03/01/16 Range/Units 07:24 Sodium 146 H (137-145) mmol/L Chloride 110 H (98-107) mmol/L BUN 99 H* (9-20) mg/dL Creatinine 2.91 H (0.66-1.25) mg/dL POC Glucose (mg/dL) (75-99) mg/dL Calcium 8.2 L (8.4-10.2) mg/dL Microbiology - Last 24 Hours (Table) 02/28/16 16:03 Urine Culture - Preliminary Urine,Catheterized Gram Neg Bacilli Assessment and Plan Plan: Impression: 1. 86-year-old gentleman with underlying chronic kidney disease admitted with symptomatic anemia with weakness and recent falls hemoglobin 6.4 Hemoccult- negative stool without overt signs or symptoms of bleeding rule out occult GI loss. 2. Acute on chronic anemia possible acute blood loss. 3. Legally blind. Plan: 1. EGD colonoscopy rescheduled for tomorrow afternoon. Citrate of magnesia this afternoon continue on clear liquid diet will provide soapsuds enemas tonight and tomorrow morning 2. Iron indices reviewed. Assessment and plan of care discussed with Dr. Alejandro.
[2016-03-01 09:05] LABS: Basophils % (A) 0 %; CH 29.1; CHCM 30.8; Eosinophils # (A) 0.1 k/uL (0-0.7); Eosinophils % (A) 3 %; HCT 29.7 % (39.0-53.0); HDW 3.54; HGB 9.4 gm/dL (13.0-17.5); Hypochromasia Marked; Luc # (Auto) 0.08; Luc % (Auto) 2; Lymphocytes # (A) 0.6 k/uL (1.0-4.8); Lymphocytes % (A) 13 %; MCHC 31.6 g/dL (31.0-37.0); MCV 95.1 fL (80.0-100.0); Mean Platelet Volume 7.5; Monocytes # (A) 0.3 k/uL (0-1.0); Monocytes % (A) 6 %; Neutrophils # (A) 3.4 k/uL (1.3-7.7); Neutrophils % (A) 76 %; Poikilocytosis Slight; RBC 3.13 m/uL (4.30-5.90); RDW 15.5 % (11.5-15.5); WBC 4.4 k/uL (3.8-10.6); WBC (Perox) 4.73
[2016-03-01] MEDS: SODIUM CHLORIDE 0.9% 1,000 ML IV SCH (09:43)
[2016-03-01] MEDS: INSULIN LISPRO (humaLOG) 300 UNIT/3 ML VIAL SQ SCH ×4 (09:47→23:12)
[2016-03-01] MEDS: SEVELAMER 800 MG TAB PO SCH ×3 (09:48→17:51)
[2016-03-01] MEDS: ALLOPURINOL 100 MG TAB PO SCH (09:48)
[2016-03-01] MEDS: TORSEMIDE 20 MG TAB PO SCH (09:48)
[2016-03-01] MEDS: METOPROLOL TARTRATE 25 MG TAB PO SCH ×2 (09:49→20:47)
[2016-03-01 11:53] LABS: Glucose,Whole Blood 177 mg/dL (75-99)
[2016-03-01] MEDS ORDERED: MAGNESIUM CITRATE 296 ML BOTTLE PO ONE (12:00)
--- NOTE | 2016-03-01 12:00 | P.PN ---
Subjective Principal diagnosis: This is a 86-year-old male seen in consultation because of acute kidney injury. He has an indwelling Prajapati catheter. He came in because of anemia and worsening creatinine. A poor historian therefore his memory and history is unreliable. His workup has shown a positive urine culture. Is growing gram- negative spending further identification and sensitivities. He remains extremely weak and tired. Denies any nausea vomiting diarrhea abdominal pain appetite is poor. Is making more urine. His past medical history significant for hyperlipidemia previous bedsores legally blind. Objective - Vital Signs Vital signs: Vital Signs Temp 97.9 F 03/01/16 07:00 Pulse 78 03/01/16 11:46 Resp 16 03/01/16 07:00 BP 160/74 03/01/16 07:00 Pulse Ox 95 03/01/16 07:00 Intake & Output 02/29/16 03/01/16 03/01/16 18:59 06:59 18:59 Intake Total 200 2325 Output Total 500 Balance 200 1825 Weight 63.503 kg Intake: IV 825 Sodium Chloride 0.9% 1, 825 000 ml @ 75 mls/hr IV . [id number] [facility] Rx#:[id number] Oral 200 1500 Output: Urine 500 Uretheral (Prajapati) 500 Other: Voiding Method Indwelling Catheter Indwelling Catheter Indwelling Catheter On examination is awake alert oriented. HEENT exam no JVP neck is supple no facial asymmetry Lungs are significant for poor inspiratory effort but normal auscultation no dullness percussion Heart sounds are unremarkable no murmur rub gallop Abdomen soft nontender no organomegaly status masses Extremity exam reveals no edema Neurologically awake alert oriented but profoundly weak - Labs CBC & Chem 7: 03/01/16 07:24 03/01/16 07:24 Labs: Abnormal Lab Results - Last 24 Hours (Table) 02/29/16 02/29/16 03/01/16 Range/Units 17:08 20:19 07:24 RBC (4.30-5.90) m/uL Hgb (13.0-17.5) gm/dL Hct (39.0-53.0) % Lymphocytes # (1.0-4.8) k/uL Sodium 146 H (137-145) mmol/L Chloride 110 H (98-107) mmol/L BUN 99 H* (9-20) mg/dL Creatinine 2.91 H (0.66-1.25) mg/dL POC Glucose (mg/dL) 209 H 120 H (75-99) mg/dL Calcium 8.2 L (8.4-10.2) mg/dL 03/01/16 Range/Units 07:24 RBC 3.13 L (4.30-5.90) m/uL Hgb 9.4 L (13.0-17.5) gm/dL Hct 29.7 L (39.0-53.0) % Lymphocytes # 0.6 L (1.0-4.8) k/uL Sodium (137-145) mmol/L Chloride (98-107) mmol/L BUN (9-20) mg/dL Creatinine (0.66-1.25) mg/dL POC Glucose (mg/dL) (75-99) mg/dL Calcium (8.4-10.2) mg/dL Microbiology - Last 24 Hours (Table) 02/28/16 16:03 Urine Culture - Preliminary Urine,Catheterized Gram Neg Bacilli Assessment and Plan Plan: Impression. 1. Acute kidney injury secondary to volume depletion and poor intake responding to IV fluids. Creatinine went down from a peak of 4-2.91 this morning. 2. Mild degree of non-gap acidosis bicarbonate resolved with bicarb of 24 and a gap of 12. Etiology was acute kidney injury 3. Minimal hyponatremia sodium of 146 secondary to poor intake of free water in a patient with acute kidney injury 3. Urine tract infection with gram-negative bacilli further identification and sensitivity to follow. Chronic indwelling catheter 3. Hemoglobin 6.4 severe anemia. Cause not very clear rule out GI malignancy. Stable hemoglobin 9.4 after transfusion 3. Mild hyperkalemia secondary acute kidney injury. Potassium is 5.6 as of this morning with a blood sugar of 93 bicarb is 23 therefore this is all from acute kidney injury 5. Small amount of right base effusion and possible atelectasis rule out pneumonia. 6. Possible urinary tract infection based on UA Recommendation. 1. Continue with IV fluids but will change it to half normal saline because of the slight hyponatremia. Discontinue the Lasix. 2. Pending urine culture sensitivity results maintain IV antibiotics. t 3. Follow labs including sodium
[2016-03-01] MEDS: SODIUM CHLORIDE 0.45% 1,000 ML IV SCH (13:14)
[2016-03-01 17:32] LABS: Glucose,Whole Blood 91 mg/dL (75-99)
[2016-03-01] MEDS: ATORVASTATIN 40 MG TAB PO SCH (20:42)
[2016-03-01] MEDS: TAMSULOSIN 0.4 MG CAP.ER.24H PO SCH (20:49)
[2016-03-01 21:04] LABS: Glucose,Whole Blood 131 mg/dL (75-99)
--- NOTE | 2016-03-01 22:34 | PN ---
DATE OF SERVICE: 03/01/2016 Presenting complaint: Anemia. INTERVAL HISTORY: The patient has severe anemia status post blood transfusion awaiting endoscopy. The patient has underlying chronic kidney disease. The patient due to scope tomorrow. Does feel weak and tired. Review of systems done for constitutional, cardiovascular, GI, pulmonary; relevant findings as above. Current medications reviewed. On examination, temperature 97.6, pulse 69, respiratory rate 16, blood pressure 160/69, pulse ox 99% on 2 liters. Previous blood pressure 160/74. GENERAL APPEARANCE: Lying in bed, awake. EYES: Pupils equal, conjunctivae pale. NECK: JVD not raised. Mass not palpable. RESPIRATORY: Effort normal. LUNGS: Diminished breath sounds. CARDIOVASCULAR: First and second sounds normal. No edema. ABDOMEN: Soft, nontender. Liver and spleen not palpable. PSYCHIATRY: Awake, answering simple questions. INVESTIGATIONS: Potassium 5, BUN ( ), creatinine 2.91, hemoglobin 9.4. ASSESSMENT: 1. Acute severe anemia ( ) contribution from severe renal failure. 2. Chronic kidney disease, stage IV from underlying nephrosclerosis. 3. Acute renal failure, prerenal component, which actually improved could be acute tubular necrosis component. 4. Chronic congestive heart failure, ejection fraction not known. 5. Essential hypertension, chronic, uncontrolled. 6. Anemia of chronic disease secondary to chronic kidney disease. 7. Emphysema in a smoker. 8. Chronic nicotine dependence. Patient is a cigarette smoker. 9. Stage II sacral decubitus ulcer. 10. Peripheral artery disease. 11. Hyperglycemia. 12. Restless leg syndrome. 13. 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 PLAN: ( ) endoscopy. Renal function actually improving. Ceftriaxone for urinary tract infection. Patient continues to be gently hydrated. Await endoscopy results. Follow. It may be possible that patient has chronic kidney disease of ( ) component, primarily an acute component, continue to hydrate the patient.
[2016-03-02] MEDS: SODIUM CHLORIDE 0.45% 1,000 ML IV SCH (06:07)
[2016-03-02 07:28] LABS: Glucose,Whole Blood 133 mg/dL (75-99)
[2016-03-02] MEDS: IPRATROPIUM-ALBUTEROL 3 ML NEB INHALATION SCH ×4 (07:38→20:05)
[2016-03-02 07:55] LABS: Calcium 8.7 mg/dL (8.4-10.2); Potassium 5.3 mmol/L (3.5-5.1)
[2016-03-02] MEDS: INSULIN LISPRO (humaLOG) 300 UNIT/3 ML VIAL SQ SCH ×4 (08:31→21:24)
[2016-03-02] MEDS: SEVELAMER 800 MG TAB PO SCH ×3 (08:34→18:13)
[2016-03-02] MEDS: ALLOPURINOL 100 MG TAB PO SCH (08:34)
[2016-03-02] MEDS: CHOLECALCIFEROL 1,000 UNIT TAB PO SCH (08:35)
[2016-03-02] MEDS: METOPROLOL TARTRATE 25 MG TAB PO SCH ×2 (08:35→21:23)
--- NOTE | 2016-03-02 08:44 | XR ---
EXAMINATION TYPE: XR chest 1V portable DATE OF EXAM: 03/02/2016 8:03 AM Comparison: 02/27/2016 Clinical History: 86 year-old male shortness of breath Findings: Heart is borderline to mildly enlarged with increasing obscuration of the right heart margin. Worseni ng perihilar and interstitial densities especially in the mid to lower lungs and worsening right basi lar opacity. Hazy density at the left base is also increased. Impression: 1. Interval worsening. Correlate for CHF with developing interstitial pulmonary edema. 2. Increased moderate right and small left pleural effusions with adjacent atelectasis and/or consoli dation.
[2016-03-02] MEDS ORDERED: SODIUM CHLORIDE 0.45% 1,000 ML IV ONE (10:55)
--- NOTE | 2016-03-02 11:04 | P.PN ---
Subjective Principal diagnosis: This is a 86-year-old male seen in consultation because of acute kidney injury, this was deemed to be from poor intake and volume depletion. He was started on IV fluids and has improved. Last night he became somewhat more short of breath. His IV fluids were reduced to KVO this morning 03/02/2016. He continues to have mild cough. No shortness of breath at the time of this exam, no nausea vomiting no diarrhea.He has an chronic indwelling Prajapati catheter. He came in because of anemia and worsening creatinine. A poor historian therefore his memory and history is unreliable. His workup has shown a positive urine culture. Is growing gram-negative spending further identification and sensitivities. His past medical history significant for hyperlipidemia previous bedsores legally blind. Objective - Vital Signs Vital signs: Vital Signs Temp 97.4 F L 03/02/16 07:00 Pulse 94 03/02/16 07:55 Resp 20 03/02/16 07:00 BP 169/81 03/02/16 07:00 Pulse Ox 95 03/02/16 07:00 Intake & Output 03/01/16 03/02/16 03/02/16 18:59 06:59 18:59 Intake Total 600 240 Output Total 950 2800 Balance -350 -2560 Intake: IV 600 Sodium Chloride 0.45% 1, 150 000 ml @ 75 mls/hr IV . [id number] [facility] Rx#:[id number] Sodium Chloride 0.9% 1, 450 000 ml @ 75 mls/hr IV . [id number] [facility] Rx#:[id number] Oral 240 Output: Urine 950 2800 Uretheral (Prajapati) 800 Other: Voiding Method Indwelling Catheter Indwelling Catheter # Bowel Movements 3 On examination is awake alert oriented 3. HEENT exam no JVP neck is supple no facial asymmetry Lungs are significant for an occasional coarse crackle at bases no dullness percussion Heart sounds are unremarkable for any murmur rub gallop Abdomen soft nontender No masses no organomegaly ascites Extremity examination no edema Neurologically awake alert oriented. No focal motor deficit. - Labs CBC & Chem 7: 03/01/16 07:24 03/02/16 07:22 Labs: Abnormal Lab Results - Last 24 Hours (Table) 03/01/16 03/01/16 03/02/16 Range/Units 11:51 20:52 07:22 Potassium 5.3 H (3.5-5.1) mmol/L Chloride 108 H (98-107) mmol/L Carbon Dioxide 21 L (22-30) mmol/L BUN 81 H* (9-20) mg/dL Creatinine 2.69 H (0.66-1.25) mg/dL Glucose 145 H (74-99) mg/dL POC Glucose (mg/dL) 177 H 131 H (75-99) mg/dL 03/02/16 Range/Units 07:26 Potassium (3.5-5.1) mmol/L Chloride (98-107) mmol/L Carbon Dioxide (22-30) mmol/L BUN (9-20) mg/dL Creatinine (0.66-1.25) mg/dL Glucose (74-99) mg/dL POC Glucose (mg/dL) 133 H (75-99) mg/dL Assessment and Plan Plan: Impression. 1. Acute kidney injury secondary to volume depletion and poor intake responding to IV fluids. Creatinine went down from a peak of 4-2.91 yesterday and is down to 2.69 this morning with good urine output. He was on IV fluids that have been reduced this morning 03/02/2016 because of shortness of breath and a chest x-ray is suggestive congestive heart failure 2. Mild degree of non-gap acidosis, with bicarb of 21 and a gap of 14. Etiology was acute kidney injury. 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 Minimal hypernatremia sodium of 146 secondary to poor intake of free water in a patient with acute kidney injury. Improved to 143 this morning on 2016 3. Urine tract infection with gram-negative bacilli further identification and sensitivity to follow. Chronic indwelling catheter 3. Hemoglobin 6.4 severe anemia. Cause not very clear rule out GI malignancy. Stable hemoglobin 9.4 after transfusion 3. Mild hyperkalemia secondary acute kidney injury. Potassium is 5.3 as of this morning . Etiology is acute kidney injury. Possibly this to RTA type IV 5. Small amount of right base effusion and possible atelectasis rule out pneumonia. 6. Gram-negative bacilli growing on urine culture pending sensitivity and identification. urinary tract infection based on UA 7. Chest x-ray showing worsening off right pleural effusion and atelectasis or infiltration with possible CHF Recommendation. 1. Discontinue IV fluids. 2. Start Lasix 20 mg every 122 and reassess tomorrow. 3. Watch blood pressure urine output and renal profile. 4. Patient awaiting for EGD and colonoscopy because of the anemia today 2069
[2016-03-02] MEDS: FUROSEMIDE 10 MG/ML 2 ML VIAL IV SCH ×2 (11:36→21:23)
[2016-03-02 12:11] LABS: Glucose,Whole Blood 143 mg/dL (75-99)
[2016-03-02] MEDS ORDERED: IV FLUID CONTINUATION 1,000 ML IV ONE (12:33)
[2016-03-02] MEDS ORDERED: PROPOFOL 10 MG/ML 20 ML VIAL IV ONE (12:40)
--- NOTE | 2016-03-02 13:14 | P.PCN ---
Date of Procedure: 03/02/16 Procedure(s) Performed: Brief history: Patient is a pleasant 86-year-old white male, with history of chronic renal failure, coronary artery disease, hypertension was admitted to the hospital with severe symptomatic anemia and a hemoglobin of 6.4 g/dL.. He received 2 units of blood transfusion and last hemoglobin is 9 g/dL. He is hence scheduled for an elective upper endoscopy as well as colonoscopy as a part of evaluation of Procedure performed: Esophagogastroduodenoscopy Colonoscopy Preoperative diagnosis: Symptomatic anemia. Anesthesia: MAC Procedure: After informed consent was obtained from the patient was brought into the endoscopy unit and IV conscious sedation was administered by anesthesia under continuous monitoring. Initially upper endoscopy was done. The Olympus GF 160 video endoscope was inserted inserted into the mouth and esophagus intubated without any difficulty and was gradually advanced into the stomach and duodenum and carefully examined. The bulb and second part of the duodenum appeared normal. The scope was then withdrawn into the stomach adequately insufflated with air and upon careful examination the antrum had mild diffuse gastritis, but body, cardia and fundus appeared normal. The scope was then withdrawn into the esophagus. The GE junction was located at 40 cm to the incisors. It appeared regular with no erythema erosions or ulcerations. Rest of the esophagus appeared normal. Patient tolerated the procedure well. At this time the patient continued to remain sedation. Initial digital rectal examination was normal. Olympus CF 160 video colonoscope was then inserted into the rectum and gradually advanced to the cecum without any difficulty. Careful examination was performed as the scope was gradually being withdrawn. The prep was excellent. The cecum, ascending colon, transverse colon, descending colon, sigmoid colon and rectum appeared normal. Scattered sigmoidal diverticulosis. Retroflexion was performed in the rectum and small internal hemorrhoids were noted. Patient tolerated the procedure well. Impression: 1. Upper endoscopy revealed mild diffuse gastritis but no evidence of esophagitis, peptic ulcer disease. 2. Colonoscopy revealed scattered similar diverticulosis and small internal hemorrhoids, but no evidence of colitis or colorectal neoplasia. Recommendations: Findings of this examination were discussed with the patient . He will be started on renal diet today..
[2016-03-02 13:56] LABS: Basophils % (A) 0 %; CH 29.1; Eosinophils % (A) 0 %; HCT 29.3 % (39.0-53.0); HDW 3.43; HGB 9.1 gm/dL (13.0-17.5); Hypochromasia Marked; Luc # (Auto) 0.05; Luc % (Auto) 1; Lymphocytes # (A) 0.4 k/uL (1.0-4.8); Lymphocytes % (A) 6 %; MCH 29.4 pg (25.0-35.0); MCHC 31.2 g/dL (31.0-37.0); MCV 94.3 fL (80.0-100.0); Monocytes # (A) 0.3 k/uL (0-1.0); Monocytes % (A) 4 %; Neutrophils # (A) 5.8 k/uL (1.3-7.7); Neutrophils % (A) 89 %; Poikilocytosis Slight; RDW 15.5 % (11.5-15.5); WBC 6.5 k/uL (3.8-10.6); WBC (Perox) 7.12
--- NOTE | 2016-03-02 16:01 | PN ---
This is an 86-year-old gentleman who was seen by Dr. Vazquez. He has significant anemia and is going for an endoscopy. He had developed apparently some rales today. He does not have any clear-cut congestive heart failure. His echo findings are unclear. Clinically he is not in overt heart failure. He already received IV Lasix. He appears to be quite comfortable at the time of my evaluation. Blood pressure today is 150/70. Pulse rate is about 96 per minute. There is JVD of 1 cm. No carotid bruit. Heart exam reveals S1 and S2 heard normally; short systolic murmur at the base. Lungs reveal diminished air entry. Abdomen is soft, non-tender. Lower extremities reveal diminished pulses. Central nervous system is normal. EKG revealed sinus mechanism ( ) LVH, repolarization changes. IMPRESSION: 1. Anemia; possible gastrointestinal bleeding, being investigated. 2. No overt evidence of congestive heart failure. 3. Acute kidney injury which is also improving. 4. Electrolyte abnormalities are also improving. RECOMMENDATIONS: I am recommending an echocardiogram to assess LV function. Continue his other medications. Will await the results of endoscopy to investigate his GI bleeding issues.
[2016-03-02 17:23] LABS: Glucose,Whole Blood 193 mg/dL (75-99)
[2016-03-02] MEDS: PANTOPRAZOLE 40 MG TABLET PO SCH (18:33)
--- NOTE | 2016-03-02 19:39 | PN ---
DATE OF SERVICE: 03/02/2016 PRESENTING COMPLAINT: Anemia, dark stools. INTERVAL HISTORY: This patient presented with severe anemia, status post blood transfusion. Hemoglobin was 9.4 yesterday. Patient has some dark stool yesterday and also dark stools today. Patient did go for endoscopy today and was found to have gastritis and diverticulosis. Patient also became short of breath since IV fluids were cut back earlier. Review of systems done for constitutional, cardiovascular, GI, pulmonary; relevant findings as above. Current medications include IV ceftriaxone. On examination, temperature 97.4, pulse 72, respiration 20, blood pressure 169/81, pulse ox 95% on 2 L. GENERAL APPEARANCE: Lying in bed, tired-appearing. EYES: Pupils equal. Conjunctivae normal. NECK: JVD unable to assess. Mass not palpable. RESPIRATORY: Effort increased. LUNGS: Diminished breath sounds. CARDIOVASCULAR: First and second sounds normal. No edema. ABDOMEN: Soft, non-tender. Liver and spleen not palpable. PSYCHIATRIC: Awake. Answering simple questions. INVESTIGATIONS: White count 6.5, hemoglobin 9.1. Patient's BUN was 81, creatinine 2.69. ASSESSMENT: 1. Acute severe anemia with gastrointestinal bleed with dark stools. EGD and colonoscopy did not show an obvious source. Patient could be bleeding from the small bowel. 2. Chronic kidney disease, stage IV, from underlying nephrosclerosis. 3. Acute renal failure, prerenal component; could be acute tubular necrosis. 4. Chronic congestive heart failure; ejection fraction not known. 5. Essential hypertension. 6. Anemia of chronic kidney disease. 7. Emphysema in a smoker. 8. Chronic nicotine dependence. Patient is an active cigarette smoker. 9. Stage II sacral decubitus ulcer, present on admission. 10. Peripheral arterial disease. 11. Restless leg syndrome. 12. Chronic urinary outflow obstruction; uses a Prajapati catheter. 13. Acute urinary tract infection from Gram-negative bacilli. Cultures are pending. PLAN: Patient's renal function has improved. Patient is still getting antibiotics for UTI. Endoscopy results are noted. Diet will be slowly advanced. Will put the patient on Protonix. Overall prognosis is guarded.
[2016-03-02 20:51] LABS: Glucose,Whole Blood 168 mg/dL (75-99)
[2016-03-02] MEDS: ATORVASTATIN 40 MG TAB PO SCH (21:23)
[2016-03-02] MEDS: TAMSULOSIN 0.4 MG CAP.ER.24H PO SCH (21:24)
[2016-03-02] MEDS: HYDROcodone/APAP 5-325MG 1 EACH TAB PO PRN (21:30)
[2016-03-03 07:21] LABS: Glucose,Whole Blood 86 mg/dL (75-99)
[2016-03-03] MEDS: IPRATROPIUM-ALBUTEROL 3 ML NEB INHALATION SCH ×4 (08:02→20:55)
[2016-03-03] MEDS: INSULIN LISPRO (humaLOG) 300 UNIT/3 ML VIAL SQ SCH ×4 (08:46→21:17)
[2016-03-03] MEDS: METOPROLOL TARTRATE 25 MG TAB PO SCH ×2 (08:47→21:19)
[2016-03-03] MEDS: SEVELAMER 800 MG TAB PO SCH ×3 (08:47→17:20)
[2016-03-03] MEDS: PANTOPRAZOLE 40 MG TABLET PO SCH (08:47)
[2016-03-03] MEDS: ALLOPURINOL 100 MG TAB PO SCH (08:48)
[2016-03-03] MEDS: HYDROcodone/APAP 5-325MG 1 EACH TAB PO PRN ×2 (08:59→21:19)
[2016-03-03 11:45] LABS: Basophils % (A) 1 %; CH 29.4; CHCM 31.7; Eosinophils # (A) 0.1 k/uL (0-0.7); Eosinophils % (A) 2 %; HCT 29.6 % (39.0-53.0); HDW 3.31; HGB 8.9 gm/dL (13.0-17.5); Hypochromasia Moderate; Luc # (Auto) 0.07; Luc % (Auto) 1; Lymphocytes # (A) 0.5 k/uL (1.0-4.8); Lymphocytes % (A) 10 %; MCH 27.9 pg (25.0-35.0); MCHC 29.9 g/dL (31.0-37.0); MCV 93.1 fL (80.0-100.0); Mean Platelet Volume 7.8; Monocytes # (A) 0.3 k/uL (0-1.0); Monocytes % (A) 6 %; Neutrophils # (A) 4.4 k/uL (1.3-7.7); Neutrophils % (A) 80 %; RBC 3.17 m/uL (4.30-5.90); RDW 15.5 % (11.5-15.5); WBC 5.4 k/uL (3.8-10.6); WBC (Perox) 5.61
[2016-03-03 11:46] LABS: Glucose,Whole Blood 104 mg/dL (75-99)
--- NOTE | 2016-03-03 11:47 | ECHOF ---
Referral Reason:CHF MEASUREMENTS -------- HEIGHT: 177.8 cm WEIGHT: 63.5 kg BP: 169/81 RVIDd: 3.8 cm (< 3.3) IVSd: 1.3 cm (0.6 - 1.1) LVIDd: 5.3 cm (3.9 - 5.3) LVPWd: 1.4 cm (0.6 - 1.1) IVSs: 1.7 cm LVIDs: 3.7 cm LVPWs: 2.0 cm LA Diam: 3.4 cm (2.7 - 3.8) LAESV Index (A-L): 58.88 ml/m Ao Diam: 3.2 cm (2.0 - 3.7) AV Cusp: 1.9 cm (1.5 - 2.6) LA Diam: 3.5 cm (2.7 - 3.8) MV EXCURSION: 16.594 mm (> 18.000) MV EF SLOPE: 54 mm/s (70 - 150) EPSS: 1.3 cm MV E Vikash: 0.95 m/s MV DecT: 210 ms MV A Vikash: 1.27 m/s MV E/A Ratio: 0.75 AR PHT: 347 ms RAP: 5.00 mmHg RVSP: 48.13 mmHg FINDINGS -------- Sinus rhythm. This was a technically good study. The left ventricular size is normal. There is mild concentric left ventricular hypertrophy. Overall left ventricular systolic function is moderate-severely impaired with, an EF between 30 - 35 %. Mid inferoseptal LV wall motion is normal. Mid anteroseptal LV wall motion is normal. Apical septum LV wall motion is normal. The right ventricle is mild to moderately enlarged. LA is severely dilated >40 ml/m2 The right atrium is normal in size. There is mild to moderate aortic valve sclerosis. The mitral valve leaflets are mildly thickened. Mild mitral annular calcification present. There is trace to mild mitral regurgitation. Mild tricuspid regurgitation present. There is mild to moderate pulmonary hypertension. The right ventricular systolic pressure, as measured by Doppler, is 48.13mmHg. The pulmonic valve was not well visualized. The aortic root size is normal. Normal inferior vena cava with normal inspiratory collapse consistent with estimated right atrial pressure of 5 mmHg. There is no pericardial effusion. Pleural Effusion with Fibrin. CONCLUSIONS -------- 1. Sinus rhythm. 2. The right atrium is normal in size. 3. There is mild to moderate aortic valve sclerosis. 4. The mitral valve leaflets are mildly thickened. 5. Mild mitral annular calcification present. 6. There is trace to mild mitral regurgitation. 7. Mild tricuspid regurgitation present. 8. There is mild to moderate pulmonary hypertension. 9. The right ventricular systolic pressure, as measured by Doppler, is 48.13mmHg. 10. The pulmonic valve was not well visualized. 11. The aortic root size is normal. 12. This was a technically good study. 13. Normal inferior vena cava with normal inspiratory collapse consistent with estimated right atrial pressure of 5 mmHg. 14. There is no pericardial effusion. 15. Pleural Effusion with Fibrin. 16. The left ventricular size is normal. 17. There is mild concentric left ventricular hypertrophy. 18. Overall left ventricular systolic function is moderate-severely impaired with, an EF between 30 - 35 %. 19. Mid inferoseptal LV wall motion is normal. 20. Mid anteroseptal LV wall motion is normal. 21. The right ventricle is mild to moderately enlarged. 22. LA is severely dilated >40 ml/m2 EMERGENCY SERVICES PROFESSIONAL: Funmilayo Murray RDCS
[2016-03-03 11:57] LABS: Calcium 8.3 mg/dL (8.4-10.2); Potassium 5.1 mmol/L (3.5-5.1); Total Bilirubin 0.3 mg/dL (0.2-1.3); Total Protein 5.9 g/dL (6.3-8.2)
--- NOTE | 2016-03-03 14:09 | P.PN ---
Subjective Principal diagnosis: This is a 86-year-old male seen in consultation because of acute kidney injury, this was deemed to be from poor intake and volume depletion. He was started on IV fluids and has improved. Last night he became somewhat more short of breath. His IV fluids were reduced to KVO 03/02/2016, for that he was started on Lasix IV every 122 doses. This morning he is feeling much better no shortness of breath. He continues to have a Prajapati catheter indwelling for the last 2 months, No nausea vomiting no diarrhea. History of present illness He came in because of anemia and worsening creatinine. A poor historian therefore his memory and history is unreliable. His workup has shown a positive urine culture. Is growing gram-negative spending further identification and sensitivities. His past medical history significant for hyperlipidemia previous bedsores legally blind. Objective - Vital Signs Vital signs: Vital Signs Temp 98.2 F 03/03/16 07:00 Pulse 72 03/03/16 12:12 Resp 16 03/03/16 07:00 BP 154/68 03/03/16 07:00 Pulse Ox 90 L 03/03/16 07:00 Intake & Output 03/02/16 03/03/16 03/03/16 18:59 06:59 18:59 Intake Total 590 Output Total 650 1250 Balance -60 -1250 Intake: IV 590 Sodium Chloride 0.45% 1, 140 000 ml @ 20 mls/hr IV . Q24H [facility] Rx#:[id number] cefTRIAXone 1,000 mg In 50 Sodium Chloride 0.9% 50 ml @ 100 mls/hr IVPB Q24HR [facility] Rx#:[id number] Output: Urine 650 1250 Other: Voiding Method Indwelling Catheter Indwelling Catheter Indwelling Catheter On examination he seems comfortable. HEENT exam no JVP neck is supple no facial asymmetry Lungs are clear to auscultation percussion good air entry bilaterally Heart sounds are unremarkable no murmur rub gallop Abdomen soft nontender Extremity exam was trace edema Neurologically awake alert oriented Generalized weakness with difficulty even sitting up - Labs CBC & Chem 7: 03/03/16 11:34 03/03/16 11:34 Labs: Abnormal Lab Results - Last 24 Hours (Table) 03/02/16 03/02/16 03/03/16 Range/Units 17:20 20:18 11:34 RBC 3.17 L (4.30-5.90) m/uL Hgb 8.9 L (13.0-17.5) gm/dL Hct 29.6 L (39.0-53.0) % MCHC 29.9 L (31.0-37.0) g/dL Lymphocytes # 0.5 L (1.0-4.8) k/uL BUN (9-20) mg/dL Creatinine (0.66-1.25) mg/dL POC Glucose (mg/dL) 193 H 168 H (75-99) mg/dL Calcium (8.4-10.2) mg/dL AST (17-59) U/L Total Protein (6.3-8.2) g/dL Albumin (3.5-5.0) g/dL 03/03/16 03/03/16 Range/Units 11:34 11:43 RBC (4.30-5.90) m/uL Hgb (13.0-17.5) gm/dL Hct (39.0-53.0) % MCHC (31.0-37.0) g/dL Lymphocytes # (1.0-4.8) k/uL BUN 82 H* (9-20) mg/dL Creatinine 2.73 H (0.66-1.25) mg/dL POC Glucose (mg/dL) 104 H (75-99) mg/dL Calcium 8.3 L (8.4-10.2) mg/dL AST 14 L (17-59) U/L Total Protein 5.9 L (6.3-8.2) g/dL Albumin 2.7 L (3.5-5.0) g/dL Microbiology - Last 24 Hours (Table) 02/28/16 16:03 Urine Culture - Final Urine,Catheterized Acinetobacter alexis/haemol Assessment and Plan Plan: Impression. 1. Acute kidney injury secondary to volume depletion and poor intake responding to IV fluids. Creatinine went down from a peak of 4.04 on 2016 to 2.69 as of yesterday 03/02/2078 with diuresis is stable at 2.73 this morning on 03/03/2016. He was started on Lasix because of congestive heart failure yesterday. 2. Mild degree of non-gap acidosis, resolved with bicarb improving from 21-28 this morning partly because of diuresis he now has an element of metabolic alkalosis. Etiology of non-gap acidosis was acute kidney injury. 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 Minimal hypernatremia sodium of 146 secondary to poor intake of free water in a patient with acute kidney injury. Improved to 141 this morning. 3. Urine tract infection with gram-negative a seat Enterobacter which is sensitive to all the medications including ceftaz addendum levofloxacin and tetracycline. Patient has Chronic indwelling catheter for about 2 months as per his son 3. Hemoglobin 6.4 severe anemia. Cause not very clear rule out GI malignancy. Stable hemoglobin 8.9 as of this morning 03/03/2016 he has been transfused last few days ago 3. Mild hyperkalemia secondary acute kidney injury. Resolved with potassium of 5.1 this morning . Etiology is acute kidney injury. Possibly this to RTA type IV 5. Small amount of right base effusion and possible atelectasis rule out pneumonia. 7. Chest x-ray showing worsening off right pleural effusion and atelectasis or infiltration with possible CHF. Started on Lasix on 03/02/2016. EGD shows mild diffuse gastritis. Colonoscopy shows diverticulosis and internal hemorrhoids no colitis or malignancy Recommendation. 1. Continue Lasix 20 mg a day by mouth. 3. Watch blood pressure urine output and renal profile. 4. Patient awaiting for EGD and colonoscopy because of the anemia today [id number]
[2016-03-03 17:18] LABS: Glucose,Whole Blood 165 mg/dL (75-99)
[2016-03-03 21:09] LABS: Glucose,Whole Blood 128 mg/dL (75-99)
[2016-03-03] MEDS: ATORVASTATIN 40 MG TAB PO SCH (21:19)
[2016-03-03] MEDS: TAMSULOSIN 0.4 MG CAP.ER.24H PO SCH (21:20)
--- NOTE | 2016-03-04 06:47 | PN ---
DATE OF SERVICE: 03/03/2016 PRESENTING COMPLAINT: Dark stools. INTERVAL HISTORY: This patient presented with severe anemia, status post blood transfusion. Patient has had no further dark stools, status post endoscopy showing gastritis and diverticulosis. The patient is tolerating his diet. Breathing is stable. Review of systems done for constitutional, cardiovascular, GI, pulmonary; relevant findings as above. Current medications are reviewed that include IV ceftriaxone. On examination, temperature 98, pulse 69, respiratory rate 16, blood pressure 160/70, pulse ox 92%. GENERAL: Lying in bed, tired -appearing. EYES: Pupils equal. Conjunctivae normal. NECK: JVD unable to assess. Mass not palpable. RESPIRATORY: Effort increased. LUNGS: Diminished breath sounds. CARDIOVASCULAR: First and second sounds no edema. ABDOMEN: Soft, nontender. Liver and spleen not palpable. PSYCHIATRY: Awake, answering questions. INVESTIGATIONS: White count 5.4, hemoglobin 8.9. Potassium 5.1, BUN 82, creatinine 2.73. ASSESSMENT: 1. Acute severe anemia with GI bleed with dark stools. Esophagogastroduodenoscopy and colonoscopy did not show an obvious source. Bleeding could have occurred from the small bowel. 2. Chronic kidney disease, stage IV, from underlying nephrosclerosis. 3. Acute renal failure, prerenal component could be acute tubular necrosis. 4. Chronic congestive heart failure from systolic dysfunction; ejection fraction 30 to 35%. 5. Essential hypertension. 6. Anemia of chronic kidney disease. 7. Emphysema, in a smoker. 8. Chronic nicotine dependence. Patient is an active cigarette smoker. 9. Stage II sacral decubitus ulcer present on admission. 10. Peripheral arterial disease. 11. Restless leg syndrome. 12. 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 13. Acute urinary tract infection from gram-negative bacilli. Cultures growing Acinetobacter baumannii. PLAN: Continue current medication and treatment plan. Overall the patient is going a bit better. Overall prognosis guarded.
[2016-03-04 06:49] LABS: Glucose,Whole Blood 137 mg/dL (75-99)
[2016-03-04] MEDS: IPRATROPIUM-ALBUTEROL 3 ML NEB INHALATION SCH ×4 (06:54→19:50)
[2016-03-04] MEDS ORDERED: FUROSEMIDE 10 MG/ML 4 ML VIAL IV STA (07:09)
[2016-03-04] MEDS ORDERED: FUROSEMIDE 10 MG/ML 10 ML VIAL IV STA (07:12)
[2016-03-04] MEDS: METOPROLOL TARTRATE 25 MG TAB PO SCH ×2 (07:22→20:51)
[2016-03-04 07:30] LABS: Basophils # (A) 0.1 k/uL (0-0.2); Basophils % (A) 2 %; CH 29.5; CHCM 31.5; Eosinophils # (A) 0.2 k/uL (0-0.7); Eosinophils % (A) 3 %; HDW 3.36; Hypochromasia Moderate; Luc # (Auto) 0.09; Luc % (Auto) 1; Lymphocytes # (A) 0.6 k/uL (1.0-4.8); Lymphocytes % (A) 10 %; MCH 28.5 pg (25.0-35.0); MCHC 30.3 g/dL (31.0-37.0); MCV 94.2 fL (80.0-100.0); Mean Platelet Volume 8.3; Monocytes # (A) 0.3 k/uL (0-1.0); Monocytes % (A) 5 %; Neutrophils % (A) 79 %; RDW 15.6 % (11.5-15.5); WBC 6.4 k/uL (3.8-10.6); WBC (Perox) 6.78
--- NOTE | 2016-03-04 07:51 | XR ---
EXAMINATION TYPE: XR chest 1V portable DATE OF EXAM: 03/04/2016 7:45 AM Comparison: 03/02/2016 Clinical History: 86 year-old male shortness of breath Findings: Right heart margin obscured by adjacent pleural-parenchymal disease. Increasing dense right basilar o pacity, continued diffuse interstitial opacities, and similar retrocardiac and hazy left basilar dens ity. Impression: 1. Correlate for continued CHF with interstitial edema. 2. Increasing now moderate sized right pleural effusion and continued small left pleural effusion wit h adjacent atelectasis and/or consolidation.
[2016-03-04] MEDS: INSULIN LISPRO (humaLOG) 300 UNIT/3 ML VIAL SQ SCH ×4 (07:53→20:52)
[2016-03-04] MEDS: SEVELAMER 800 MG TAB PO SCH ×3 (08:02→17:24)
[2016-03-04] MEDS: HYDROcodone/APAP 5-325MG 1 EACH TAB PO PRN ×2 (08:05→20:59)
[2016-03-04] MEDS: PANTOPRAZOLE 40 MG TABLET PO SCH (08:06)
[2016-03-04] MEDS: ALLOPURINOL 100 MG TAB PO SCH (08:07)
[2016-03-04 08:22] LABS: Calcium 8.7 mg/dL (8.4-10.2); Potassium 5.1 mmol/L (3.5-5.1); Total Bilirubin 0.4 mg/dL (0.2-1.3); Total Protein 6.9 g/dL (6.3-8.2)
[2016-03-04] MEDS ORDERED: FUROSEMIDE 20 MG TAB PO SCH (09:00)
[2016-03-04 11:44] LABS: Glucose,Whole Blood 139 mg/dL (75-99)
--- NOTE | 2016-03-04 12:33 | P.PN ---
Subjective Principal diagnosis: This is a 86-year-old male seen in consultation because of acute kidney injury, this was deemed to be from poor intake and volume depletion. He was started on IV fluids and had improved. On late 03/02/2016 he became somewhat more short of breath. His IV fluids were reduced to KVO 03/02/2016, for that he was started on Lasix IV every 122 doses. In spite of this his shortness of breath worsened and on 03/04/2016 today he had another x-ray and it showed persistent of possible congestive heart failure with right-sided pleural effusion. He was given 80 mg Lasix he was put out about 300 mL and feels much better. His appetite is fair no nausea vomiting diarrhea. No dizziness no cough fever chills. He continues to have a Prajapati catheter indwelling for the last 2 months, History of present illness; He came in because of anemia and worsening creatinine. Workup here in the hospital is shown positive urine culture with Acinetobacter. His past medical history significant for hyperlipidemia previous bedsores legally blind. Objective - Vital Signs Vital signs: Vital Signs Temp 98.3 F 03/04/16 06:50 Pulse 76 03/04/16 11:21 Resp 18 03/04/16 10:52 BP 175/76 03/04/16 10:52 Pulse Ox 96 03/04/16 10:52 Intake & Output 03/03/16 03/04/16 03/04/16 18:59 06:59 18:59 Intake Total 160 Output Total 950 175 Balance 160 -950 -175 Intake: IV 160 Sodium Chloride 0.45% 1, 160 000 ml @ 20 mls/hr IV . Q24H [facility] Rx#:[id number] Output: Urine 950 175 Other: Voiding Method Indwelling Catheter Indwelling Catheter Indwelling Catheter On examination is awake alert oriented seems to be comfortable at this time. A chin exam no JVP neck is supple no facial asymmetry Lungs are significant for diminished breath sounds on both sides no dullness percussion in spite of the fact that the chest x-ray shows moderate amount of right pleural effusion. Heart sounds are unremarkable for any murmur rub gallop Abdomen soft nontender Extremity exam was no edema Neurologically awake alert follows commands. oriented 3 - Labs CBC & Chem 7: 03/04/16 07:20 03/04/16 07:20 Labs: Abnormal Lab Results - Last 24 Hours (Table) 03/03/16 03/03/16 03/04/16 Range/Units 17:16 20:54 06:46 RBC (4.30-5.90) m/uL Hgb (13.0-17.5) gm/dL Hct (39.0-53.0) % MCHC (31.0-37.0) g/dL RDW (11.5-15.5) % Lymphocytes # (1.0-4.8) k/uL BUN (9-20) mg/dL Creatinine (0.66-1.25) mg/dL Glucose (74-99) mg/dL POC Glucose (mg/dL) 165 H 128 H 137 H (75-99) mg/dL AST (17-59) U/L Albumin (3.5-5.0) g/dL 03/04/16 03/04/16 03/04/16 Range/Units 07:20 07:20 11:41 RBC 3.50 L (4.30-5.90) m/uL Hgb 10.0 L (13.0-17.5) gm/dL Hct 33.0 L (39.0-53.0) % MCHC 30.3 L (31.0-37.0) g/dL RDW 15.6 H (11.5-15.5) % Lymphocytes # 0.6 L (1.0-4.8) k/uL BUN 79 H (9-20) mg/dL Creatinine 2.96 H (0.66-1.25) mg/dL Glucose 155 H (74-99) mg/dL POC Glucose (mg/dL) 139 H (75-99) mg/dL AST 15 L (17-59) U/L Albumin 3.2 L (3.5-5.0) g/dL Assessment and Plan Plan: Impression. 1. Acute kidney injury secondary to volume depletion and poor intake responding to IV fluids. Creatinine went down from a peak of 4.04 on 2016 to 2.69 as of 03/02/2078 with diuresis is stable at 2.73 on 03/03/2016. He was started on Lasix because of congestive heart failure on 03/03/2016 yesterday, and in spite of this became more short of breath and had congestive heart failure possibly as per the chest x-ray report. He received 80 mg of IV Lasix this morning and improved significantly 2. Minimal hypernatremia sodium of 146 secondary to poor intake of free water in a patient with acute kidney injury. Improved to 142 this morning. 3. Urine tract infection with gram-negative a acinetorobacter which is sensitive to all the medications. Sensitive to multiple antibiotics. Patient has Chronic indwelling catheter for about 2 months as per his son 4. Hemoglobin 6.4 severe anemia. status post transfusion hemoglobins 10 as of 03/04/2016. Had EGD 03/03/2016 shows mild diffuse gastritis. Colonoscopy shows diverticulosis and internal hemorrhoids no colitis or malignancy 5. Mild hyperkalemia secondary acute kidney injury. Resolved with potassium of 5.1 this morning . Etiology is acute kidney injury. 6. Chest x-ray showing worsening off right pleural effusion and atelectasis or infiltration with possible CHF. Started on Lasix on 03/02/2016. Recommendation. 1. Continue Lasix, but increase dose to 40 mg twice a day, and if urine output is not satisfactory by this evening will increase it further. 2. Watch hemoglobin 3. Watch blood pressure urine output and renal profile.
[2016-03-04] MEDS: FUROSEMIDE 40 MG TAB PO SCH ×2 (12:37→17:25)
[2016-03-04 17:07] LABS: Glucose,Whole Blood 166 mg/dL (75-99)
--- NOTE | 2016-03-04 18:55 | PN ---
DATE OF SERVICE: 03/04/2016 PRESENTING COMPLAINT: Short of breath. INTERVAL HISTORY: This patient initially presented with severe anemia, status post blood transfusion. He did undergo EGD and colonoscopy this morning. Patient went into acute respiratory failure, quite a bit short of breath. I gave the patient IV Lasix 80 mg. Patient put out about 350 mL. Breathing is better. Patient was not hungry this morning, wants to eat a bit. No further dark stools, weak and tired. Review of systems done for constitutional, cardiovascular, GI, pulmonary; relevant findings of above. Current medications are reviewed that include IV ceftriaxone. On examination, temperature afebrile, pulse 114, respiration 20, blood pressure 135/76, pulse ox 96% on 4 L. GENERAL APPEARANCE: Sitting, propped up in bed, very tired-appearing, short of breath. EYES: Pupils equal. Conjunctivae normal. NECK: JVD unable to assess. Mass not palpable. Respiratory effort increased. LUNGS: Scattered crackles. CARDIOVASCULAR: First and second sounds normal. No edema. ABDOMEN: Soft, nontender. Liver and spleen not palpable. PSYCHIATRY: Awake, answering questions. INVESTIGATIONS: Chest x-ray shows pulmonary edema with right pleural effusion. White count 6.4, hemoglobin 10, potassium 5.1. BUN 79, creatinine 2.96. ASSESSMENT: 1. Acute severe anemia, gastrointestinal bleed with dark stool, present on admission. EGD and colonoscopy did not show any obvious source. This could have been a small bowel source. 2. 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 3. Possibly acute renal failure, prerenal; could be acute tubular necrosis. 4. Acute on chronic congestive heart failure exacerbation from systolic dysfunction; ejection fraction 30% to 35%. 5. Essential hypertension. 6. Anemia of chronic kidney disease. 7. Emphysema, in a smoker. 8. Chronic nicotine dependence. Patient is an active cigarette smoker. 9. Stage II sacral decubitus ulcer, present on admission. 10. Peripheral artery disease. 11. Restless leg syndrome. 12. 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 13. Acute urinary tract infection from Acinetobacter baumannii, present on admission. PLAN: Patient was given IV Lasix, 80 mg x1 today, and the p.o. dose has been increased. Overall prognosis remains guarded for the patient. Will follow.
[2016-03-04 20:19] LABS: Glucose,Whole Blood 160 mg/dL (75-99)
[2016-03-04] MEDS: ATORVASTATIN 40 MG TAB PO SCH (20:51)
[2016-03-04] MEDS: TAMSULOSIN 0.4 MG CAP.ER.24H PO SCH (20:51)
[2016-03-05] MEDS: IPRATROPIUM-ALBUTEROL 3 ML NEB INHALATION SCH ×4 (08:03→20:41)
[2016-03-05] MEDS: INSULIN LISPRO (humaLOG) 300 UNIT/3 ML VIAL SQ SCH ×4 (08:03→20:48)
[2016-03-05 08:04] LABS: Glucose,Whole Blood 138 mg/dL (75-99)
[2016-03-05] MEDS: ALLOPURINOL 100 MG TAB PO SCH (09:48)
[2016-03-05] MEDS: PANTOPRAZOLE 40 MG TABLET PO SCH (09:48)
[2016-03-05] MEDS: FUROSEMIDE 40 MG TAB PO SCH ×2 (09:48→15:47)
[2016-03-05] MEDS: METOPROLOL TARTRATE 25 MG TAB PO SCH ×2 (09:48→20:13)
[2016-03-05] MEDS: SEVELAMER 800 MG TAB PO SCH ×3 (09:49→17:47)
[2016-03-05] MEDS: CHOLECALCIFEROL 1,000 UNIT TAB PO SCH (09:49)
[2016-03-05] MEDS: HYDROcodone/APAP 5-325MG 1 EACH TAB PO PRN ×2 (09:54→20:14)
--- NOTE | 2016-03-05 10:50 | P.PN ---
Subjective Principal diagnosis: Patient is seen in follow-up for acute kidney injury. Creatinine was 4 on admission and has improved since then. It was 2.96 yesterday. Labs from today are pending at this time. Patient initially received IV hydration and subsequently got fluid overloaded at this point. He is currently maintained on Lasix 40 mg twice daily. He has a Prajapati catheter in place and is nonoliguric. He does have systolic CHF with ejection fraction of 30-35% with moderate pulmonary hypertension. Appetite is significantly improved. No vomiting or diarrhea. Vital signs are stable. General: The patient appeared well nourished and normally developed. HEENT: Head exam is unremarkable. Neck is without jugular venous distension. LUNGS: Lungs are clear to auscultation and percussion. Breath sounds decreased. HEART: Rate and Rhythm are regular. First and second heart sounds normal. No murmurs, rubs or gallops. ABDOMEN: Abdominal exam reveals normal bowel sounds. Non-tender and non- distended. No evidence of peritonitis. EXTREMITITES: No clubbing, cyanosis, or edema. Objective - Vital Signs Vital signs: Vital Signs Temp 97.2 F L 03/05/16 07:00 Pulse 72 03/05/16 08:16 Resp 18 03/05/16 07:00 BP 167/71 03/05/16 07:00 Pulse Ox 97 03/05/16 07:00 Intake & Output 03/04/16 03/05/16 03/05/16 18:59 06:59 18:59 Intake Total 50 340 Output Total 875 1400 Balance -825 -1060 Intake: IV 50 100 cefTRIAXone 1,000 mg In 50 100 Sodium Chloride 0.9% 50 ml @ 100 mls/hr IVPB Q24HR [facility] Rx#:[id number] Oral 240 Output: Urine 875 1400 Uretheral (Prajapati) 900 Other: Voiding Method Indwelling Catheter Indwelling Catheter # Voids 2 - Labs CBC & Chem 7: 03/04/16 07:20 03/04/16 07:20 Labs: Abnormal Lab Results - Last 24 Hours (Table) 03/04/16 03/04/16 03/04/16 Range/Units 11:41 17:04 20:17 POC Glucose (mg/dL) 139 H 166 H 160 H (75-99) mg/dL 03/05/16 Range/Units 08:00 POC Glucose (mg/dL) 138 H (75-99) mg/dL Assessment and Plan Plan: Assessment: #1. Nonoliguric acute kidney injury secondary to ischemic ATN secondary to anemia. Also component of cardiorenal syndrome. #2. Acute anemia status post packed red blood cell transfusion. Hemoglobin 10 as of March 04. #3. Systolic CHF with ejection fraction of 30-35% with moderate pulmonary hypertension. #4. Urinary tract infection with urine culture positive for Acinetobacter. #5. Rule out chronic kidney disease. Unclear as to what his baseline renal function is. Urinalysis is quite benign in renal ultrasound also shows normal sized kidneys without any evidence of hydronephrosis. However cortical thinning was noted suggestive of chronic kidney disease. Plan: Continue Lasix 40 mg twice daily. Check electrolytes today and again in the morning. Encourage oral intake. Avoid nephrotoxic agents and hypotensive episodes.
[2016-03-05 11:22] LABS: Glucose,Whole Blood 175 mg/dL (75-99)
[2016-03-05 11:43] LABS: Calcium 8.2 mg/dL (8.4-10.2); Potassium 5.7 mmol/L (3.5-5.1)
[2016-03-05 17:25] LABS: Glucose,Whole Blood 113 mg/dL (75-99)
[2016-03-05] MEDS: TAMSULOSIN 0.4 MG CAP.ER.24H PO SCH (20:13)
[2016-03-05] MEDS: ATORVASTATIN 40 MG TAB PO SCH (20:13)
[2016-03-05] MEDS: SODIUM POLYSTYRENE SULFONATE 15 GM/60 ML BOTTLE PO STA ×2 (20:16→21:00)
[2016-03-05 20:39] LABS: Glucose,Whole Blood 187 mg/dL (75-99)
--- NOTE | 2016-03-05 21:30 | PN ---
DATE OF SERVICE: 03/05/2016 PRESENTING COMPLAINT: Short of breath. INTERVAL HISTORY: Patient initially presented with severe anemia. Did get a blood transfusion. Had black tarry stools. EGD and colonoscopy did not show an obvious cause. Patient went ( ) into fluid overload, did receive Lasix, the patient also felt to have chronic kidney disease. The patient is feeling better. Sputum production ( ). Less congested. ( ) antibiotic. Review of systems done for constitutional, cardiovascular, GI, pulmonary; relevant findings as above. Current medications include IV ceftriaxone. On examination, temperature 97.8, pulse 55, respiratory rate 17, blood pressure 150/68, pulse ox 99% on 3 L. GENERAL APPEARANCE: Propped up in bed. Less tired appearing. EYES: Pupils equal. Conjunctivae pale. NECK: JVD not raised. Mass not palpable. RESPIRATORY: Effort increased. LUNGS: Improved air entry but no crackles. CARDIOVASCULAR: First and second sounds normal. No edema. ABDOMEN: Soft nontender. Liver and spleen not palpable. PSYCHIATRY: Awake, answering questions appropriately. INVESTIGATIONS: Potassium 5.7, BUN 93, creatinine 2.87. ASSESSMENT: 1. Acute severe anemia, gastrointestinal bleed with dark stools, likely could be a possible small bowel source. 2. Chronic kidney disease, stage IV, from nephrosclerosis. 3. Possible acute renal failure, prerenal, could be acute tubular necrosis. 4. Acute on chronic congestive heart failure from systolic dysfunction; ejection fraction 30% to 35%. 5. Essential hypertension. 6. Anemia of chronic kidney disease. 7. Emphysema, in a smoker. 8. Chronic nicotine dependence. Patient is an active cigarette smoker. 9. Stage II sacral decubitus ulcer, present on admission. 10. Peripheral artery disease. 11. Restless leg syndrome. 12. Urinary outflow obstruction. He has a Prajapati catheter. 13. Acute urinary tract infection from Acinetobacter baumannii present on admission. 14. Patient's ( ) stabilized. Still has a high potassium. Will give a dose of Kayexalate. Looking at discharge planning. Overall prognosis guarded.
[2016-03-06] MEDS: IPRATROPIUM-ALBUTEROL 3 ML NEB INHALATION SCH ×4 (07:16→19:02)
[2016-03-06] MEDS: SEVELAMER 800 MG TAB PO SCH ×3 (07:42→18:47)
[2016-03-06] MEDS: METOPROLOL TARTRATE 25 MG TAB PO SCH ×2 (07:42→21:40)
[2016-03-06] MEDS: PANTOPRAZOLE 40 MG TABLET PO SCH (07:42)
[2016-03-06] MEDS: ALLOPURINOL 100 MG TAB PO SCH (07:42)
[2016-03-06] MEDS: FUROSEMIDE 40 MG TAB PO SCH ×2 (07:43→18:49)
[2016-03-06] MEDS: INSULIN LISPRO (humaLOG) 300 UNIT/3 ML VIAL SQ SCH ×4 (07:52→21:42)
[2016-03-06 08:15] LABS: Calcium 8.2 mg/dL (8.4-10.2); Phosphorous 3.1 mg/dL (2.5-4.5); Potassium 5.1 mmol/L (3.5-5.1)
[2016-03-06 08:17] LABS: Glucose,Whole Blood 110 mg/dL (75-99)
--- NOTE | 2016-03-06 11:37 | P.PN ---
Subjective Principal diagnosis: Patient is seen in follow-up for acute kidney injury. Creatinine was 4 on admission and has improved since then. Renal function is relatively stable with creatinine at 3 today. Patient initially received IV hydration and subsequently got fluid overloaded. He is currently maintained on Lasix 40 mg twice daily. He has a Prajapati catheter in place and is nonoliguric. He does have systolic CHF with ejection fraction of 30-35% with moderate pulmonary hypertension. Appetite is significantly improved. No vomiting or diarrhea. Dyspnea is improved as well. Vital signs are stable. General: The patient appeared well nourished and normally developed. HEENT: Head exam is unremarkable. Neck is without jugular venous distension. LUNGS: Lungs are clear to auscultation and percussion. Breath sounds decreased. HEART: Rate and Rhythm are regular. First and second heart sounds normal. No murmurs, rubs or gallops. ABDOMEN: Abdominal exam reveals normal bowel sounds. Non-tender and non- distended. No evidence of peritonitis. EXTREMITITES: No clubbing, cyanosis, or edema. Objective - Vital Signs Vital signs: Vital Signs Temp 97.4 F L 03/05/16 21:35 Pulse 66 03/06/16 10:48 Resp 16 03/06/16 08:00 BP 168/75 03/05/16 21:35 Pulse Ox 97 03/06/16 07:18 Intake & Output 03/05/16 03/06/16 03/06/16 18:59 06:59 18:59 Intake Total 50 300 Output Total 800 Balance 50 -500 Weight 68.5 kg Intake: IV 50 cefTRIAXone 1,000 mg In 50 Sodium Chloride 0.9% 50 ml @ 100 mls/hr IVPB Q24HR [facility] Rx#:[id number] Oral 300 Output: Urine 800 Uretheral (Prajapati) 800 Other: Voiding Method Indwelling Catheter Indwelling Catheter Indwelling Catheter - Labs CBC & Chem 7: 03/04/16 07:20 03/06/16 07:39 Labs: Abnormal Lab Results - Last 24 Hours (Table) 03/05/16 03/05/16 03/05/16 Range/Units 10:45 17:21 20:37 Potassium 5.7 H (3.5-5.1) mmol/L BUN 93 H* (9-20) mg/dL Creatinine 2.87 H (0.66-1.25) mg/dL Glucose 166 H (74-99) mg/dL POC Glucose (mg/dL) 113 H 187 H (75-99) mg/dL Calcium 8.2 L (8.4-10.2) mg/dL 03/06/16 03/06/16 Range/Units 07:39 07:52 Potassium (3.5-5.1) mmol/L BUN 92 H* (9-20) mg/dL Creatinine 3.00 H (0.66-1.25) mg/dL Glucose 103 H (74-99) mg/dL POC Glucose (mg/dL) 110 H (75-99) mg/dL Calcium 8.2 L (8.4-10.2) mg/dL Assessment and Plan Plan: Assessment: #1. Nonoliguric acute kidney injury secondary to ischemic ATN secondary to anemia. Also component of cardiorenal syndrome. Renal function relatively stable with creatinine at 3 today. #2. Acute anemia status post packed red blood cell transfusion. Hemoglobin 10 as of March 04. #3. Systolic CHF with ejection fraction of 30-35% with moderate pulmonary hypertension. #4. Urinary tract infection with urine culture positive for Acinetobacter. #5. Rule out chronic kidney disease. Unclear as to what his baseline renal function is. Urinalysis is quite benign in renal ultrasound also shows normal sized kidneys without any evidence of hydronephrosis. However cortical thinning was noted suggestive of chronic kidney disease. Plan: Hold tonight's dose of Lasix. Check chest x-ray in the morning. Encourage oral intake. Avoid nephrotoxic agents and hypotensive episodes. Repeat electrolytes in the morning.
--- NOTE | 2016-03-06 13:01 | DS ---
DATE OF ADMISSION: 02/27/2016 DATE OF DISCHARGE: 03/06/2016 FINAL DIAGNOSES: 1. Acute severe anemia from gastrointestinal bleed, possibly from small bowel. 2. 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 3. Possible acute renal failure; could be acute tubular necrosis. 4. Acute on chronic congestive heart failure exacerbation from systolic dysfunction. Ejection fraction 30% to 35% from essential hypertension. 5. Essential hypertension. 6. Anemia of chronic kidney disease. 7. Emphysema, in a smoker. 8. Chronic nicotine dependence. Patient is an active cigarette smoker. 9. Stage II sacral decubitus ulcer present at admission. 10. Peripheral artery disease. 11. Restless leg syndrome. 12. Urinary outflow obstruction, has a Prajapati catheter. 13. Acute urinary tract infection from Acinetobacter baumannii, present on admission, has completed a course of antibiotic. 14. Hyperkalemia from renal failure. CONSULTATIONS: 1. Dr. Leung from Nephrology. 2. Dr. Edward Quinones from GI. 3. Dr. Vazquez from Cardiology. HOSPITAL COURSE: This patient presented with severe anemia. Hemoglobin was down to 6.4 on presentation. Patient did get 2 units of blood. By the time of discharge, hemoglobin is up to 10. Patient did go EGD and colonoscopy by Dr. Edward Quinones, which showed mild diffuse gastritis and some scattered diverticulosis. It is possible that patient could have bleed from small bowel but patient's stool is completely resolved. Patient also in CHF, did get IV Lasix to which he responded. A 2-D echocardiogram shows EF of 30% to 35%. Patient also has an element of pleural effusion. By the time of discharge, patient is doing relatively better. Overall prognosis is guarded. On exam: LUNGS: Diminished breath sounds. Answering questions. Patient's BU and creatinine is 79 and 2.96. Patient's creatinine was 4.0 at the time of admission overall. Overall prognosis is guarded. Renal ultrasound did show cortical thinning. DISCHARGE MEDICATIONS: 1. Tylenol 650 mg p.o. q.4 p.r.n. 2. Allopurinol 100 mg a day. 3. Lipitor 20 mg q.h.s. 4. Vitamin D3 ten thousand units p.o. on Mondays and Saturday. 5. Ensure clear one can p.o. t.i.d. with meals. 6. Iron 27 mg p.o. daily. 7. DuoNeb 3 mL q.4 p.r.n. 8. Lactulose 10 gm p.o. daily p.r.n. 9. Nitrostat 0.4 sublingual q.5 p.r.n. 10. Renvela 800 mg p.o. a.c. t.i.d. 11. Flomax 0.4 mg p.o. q.h.s. 12. Triad cream topical q.h.s. p.r.n. 13. Requip 1 mg p.o. q.h.s. 14. [place] 5 one tablet p.o. t.i.d. p.r.n. 15. DuoNeb q.i.d. 16. Lopressor 25 mg p.o. b.i.d. 17. Protonix 40 mg p.o. at breakfast. 18. Demadex 40 mg p.o. b.i.d. This was in [facility]. Follow up with Dr. Ackerman in [facility]; follow up with Dr. Edward Quinones in one week. Follow up with Dr. Powell in one week. Follow up with Cardiology per their recommendations. Overall prognosis is guarded. DC planning more than 35 minutes. Care was discussed with the patient.
[2016-03-06 13:02] LABS: Glucose,Whole Blood 150 mg/dL (75-99)
[2016-03-06 15:12] VITALS: BMI 21.7
[2016-03-06 17:52] LABS: Glucose,Whole Blood 161 mg/dL (75-99)
[2016-03-06 20:01] LABS: Glucose,Whole Blood 209 mg/dL (75-99)
[2016-03-06] MEDS: HYDROcodone/APAP 5-325MG 1 EACH TAB PO PRN (21:39)
[2016-03-06] MEDS: ATORVASTATIN 40 MG TAB PO SCH (21:41)
[2016-03-06] MEDS: TAMSULOSIN 0.4 MG CAP.ER.24H PO SCH (21:41)
[2016-03-07 07:41] LABS: Glucose,Whole Blood 142 mg/dL (75-99)
[2016-03-07] MEDS: IPRATROPIUM-ALBUTEROL 3 ML NEB INHALATION SCH ×4 (08:07→20:01)
[2016-03-07 08:12] LABS: Calcium 7.9 mg/dL (8.4-10.2); Potassium 4.7 mmol/L (3.5-5.1)
[2016-03-07] MEDS: INSULIN LISPRO (humaLOG) 300 UNIT/3 ML VIAL SQ SCH ×4 (08:43→21:36)
[2016-03-07] MEDS: PANTOPRAZOLE 40 MG TABLET PO SCH (08:44)
[2016-03-07] MEDS: ALLOPURINOL 100 MG TAB PO SCH (08:45)
[2016-03-07] MEDS: METOPROLOL TARTRATE 25 MG TAB PO SCH ×2 (08:46→20:28)
[2016-03-07] MEDS: FUROSEMIDE 40 MG TAB PO SCH ×2 (08:48→15:58)
[2016-03-07] MEDS: SEVELAMER 800 MG TAB PO SCH ×3 (11:06→17:42)
[2016-03-07 11:43] LABS: Glucose,Whole Blood 167 mg/dL (75-99)
--- NOTE | 2016-03-07 14:19 | P.PN ---
Subjective Principal diagnosis: Patient is seen in follow-up for acute kidney injury. Creatinine was 4 on admission and has improved since then. Renal function is mildly worsened with creatinine at 3.2 today. Patient initially received IV hydration and subsequently got fluid overloaded. He is currently maintained on Lasix 40 mg twice daily. He has a Prajapati catheter in place and is nonoliguric. He does have systolic CHF with ejection fraction of 30-35% with moderate pulmonary hypertension. Appetite is significantly improved. No vomiting or diarrhea. Dyspnea is improved as well. Vital signs are stable. General: The patient appeared well nourished and normally developed. HEENT: Head exam is unremarkable. Neck is without jugular venous distension. LUNGS: Lungs are clear to auscultation and percussion. Breath sounds decreased. HEART: Rate and Rhythm are regular. First and second heart sounds normal. No murmurs, rubs or gallops. ABDOMEN: Abdominal exam reveals normal bowel sounds. Non-tender and non- distended. No evidence of peritonitis. EXTREMITITES: No clubbing, cyanosis, or edema. Objective - Vital Signs Vital signs: Vital Signs Temp 97.9 F 03/07/16 07:00 Pulse 80 03/07/16 12:25 Resp 16 03/07/16 07:00 BP 154/69 03/07/16 07:00 Pulse Ox 97 03/07/16 07:00 Intake & Output 03/06/16 03/07/16 03/07/16 18:59 06:59 18:59 Intake Total 200 200 Output Total 1300 Balance 200 -1100 Weight 68.5 kg 66.5 kg Intake: Oral 200 200 Output: Urine 1300 Other: Voiding Method Indwelling Catheter Indwelling Catheter Indwelling Catheter # Bowel Movements 1 - Labs CBC & Chem 7: 03/04/16 07:20 03/07/16 07:28 Labs: Abnormal Lab Results - Last 24 Hours (Table) 03/06/16 03/06/16 03/07/16 Range/Units 17:45 19:59 07:28 BUN 104 H* (9-20) mg/dL Creatinine 3.20 H (0.66-1.25) mg/dL Glucose 126 H (74-99) mg/dL POC Glucose (mg/dL) 161 H 209 H (75-99) mg/dL Calcium 7.9 L (8.4-10.2) mg/dL 03/07/16 03/07/16 Range/Units 07:40 11:42 BUN (9-20) mg/dL Creatinine (0.66-1.25) mg/dL Glucose (74-99) mg/dL POC Glucose (mg/dL) 142 H 167 H (75-99) mg/dL Calcium (8.4-10.2) mg/dL Assessment and Plan Plan: Assessment: #1. Nonoliguric acute kidney injury secondary to ischemic ATN secondary to anemia. Also component of cardiorenal syndrome. Renal function slightly worsened with creatinine at 3.2 today. #2. Acute anemia status post packed red blood cell transfusion. Hemoglobin 10 as of March 04. #3. Systolic CHF with ejection fraction of 30-35% with moderate pulmonary hypertension. #4. Urinary tract infection with urine culture positive for Acinetobacter. #5. Rule out chronic kidney disease. Unclear as to what his baseline renal function is. Urinalysis is quite benign in renal ultrasound also shows normal sized kidneys without any evidence of hydronephrosis. However cortical thinning was noted suggestive of chronic kidney disease. Plan: Encourage oral intake. Avoid nephrotoxic agents and hypotensive episodes. Stable to be discharged to ECF on torsemide 40 mg once daily. He will need to get basic metabolic panel checked in about 3 days from discharge and follow-up as an outpatient in the next 1 week. I did briefly discuss options of renal replacement therapy with the patient and he is in agreement to start when needed.
--- NOTE | 2016-03-07 15:50 | XR ---
EXAMINATION TYPE: XR chest 2V DATE OF EXAM: 03/07/2016 2:03 PM COMPARISON: Prior chest x-ray March 04, 2016 HISTORY: Pneumonia and CHF per order.Shortness of breath with crackling on physical exam. TECHNIQUE: Frontal and lateral views of the chest are obtained. FINDINGS: Osseous structures are demineralized. There are persistent moderate size right and small t o moderate-sized left pleural effusions. There is persistent associated bibasilar atelectasis and/or infiltrate. There is persistent cardiomegaly with atherosclerotic thoracic aorta and mild to moderate central vascular congestion IMPRESSION: Suspect CHF exacerbation as there is cardiomegaly with small to moderate-sized right gre ater than left pleural effusions and mild to moderate central vascular congestion all redemonstrated. No significant change from study 3 days earlier.
[2016-03-07 16:38] LABS: Glucose,Whole Blood 183 mg/dL (75-99)
--- NOTE | 2016-03-07 17:32 | PN ---
DATE OF SERVICE: 03/06/2016 PRESENTING COMPLAINT: Short of breath. INTERVAL HISTORY: Patient was seen by me yesterday on 03/06/16. Discharge was held. Patient was noted to have severe anemia, did get blood transfusion; also had blacked out. He had an EGD and colonoscopy. Source is possibly small bowel. Breathing is getting better. Patient has underlying chronic kidney disease, tolerating some diet. Review of systems done for constitutional, cardiovascular, GI, pulmonary; relevant findings as above. Current medications are reviewed. On examination, temperature 98.2, pulse 75, respiration 16, blood pressure 159/69, pulse ox 96% on 3 L. GENERAL APPEARANCE: Sitting in bed, tired-appearing. EYES: Pupils equal. Conjunctivae pale. NECK: JVD not raised. Mass not palpable. RESPIRATORY: Effort increased. LUNGS: Decreased breath sounds. CARDIOVASCULAR: First and second sounds normal. No edema. ABDOMEN: Soft, nontender. Liver and spleen not palpable. PSYCHIATRY: Awake. Answering questions. INVESTIGATIONS: BUN 92, creatinine 3.0. ASSESSMENT: 1. Acute severe anemia and gastrointestinal bleed with dark stools; likely could be a small bowel source. 2. Chronic kidney disease, stage IV, from nephrosclerosis. 3. Possible acute renal failure, prerenal; could be acute tubular necrosis. 4. Acute on chronic congestive heart failure exacerbation from systolic dysfunction; ejection fraction 30% to 35%, probably from hypertensive heart disease. 5. Essential hypertension. 6. Anemia of chronic kidney disease. 7. Emphysema in a smoker. 8. Chronic nicotine dependence. Patient is an active cigarette smoker. 9. Stage II sacral decubitus ulcer, present on admission. 10. Peripheral artery disease. 11. Restless leg syndrome. 12. Urinary outflow obstruction; has a Prajapati catheter. 13. Acute urinary tract infection from Acinetobacter baumannii, present on admission. PLAN: Continue current medication and treatment plan. Dr. Powell would like to hold the patient back and adjust his diuretics. Will repeat labs in the morning and follow.
[2016-03-07] MEDS: TAMSULOSIN 0.4 MG CAP.ER.24H PO SCH (20:27)
[2016-03-07] MEDS: ATORVASTATIN 40 MG TAB PO SCH (20:27)
[2016-03-07] MEDS: HYDROcodone/APAP 5-325MG 1 EACH TAB PO PRN (20:27)
--- NOTE | 2016-03-07 21:23 | PN ---
DATE OF SERVICE: 03/07/2016 PRESENTING COMPLAINT: Short of breath. INTERVAL HISTORY: This patient presented with severe anemia. Underwent an EGD, colonoscopy ( ) bleeding felt to be from small bowel. The patient was also treated for congestive heart failure, renal failure, tolerating some diet. Awaiting authorization for placement. Review of systems done for constitutional, cardiovascular, GI, pulmonary; relevant findings as above. Current medications are reviewed. On examination, temperature 98.1, pulse 80, respiratory rate 18, blood pressure 149/72, pulse ox 95% on 3 L. GENERAL APPEARANCE: Propped up in bed, tired-appearing. EYES: Pupils equal. Conjunctivae pale. NECK: JVD not raised. Mass not palpable. RESPIRATORY: Effort increased. LUNGS: Fair air entry. CARDIOVASCULAR: First and second sounds normal. No edema. ABDOMEN: Soft, nontender. Liver and spleen not palpable. PSYCHIATRY: Awake. Answering simple questions. INVESTIGATIONS: BUN 104, creatinine 2.0. ASSESSMENT: 1. Acute severe anemia and gastrointestinal bleed with dark stools, likely from possible small bowel source. Stools have now recovered. 2. 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 3. Possible acute renal failure; could be acute tubular necrosis. 4. Acute on chronic congestive heart failure from systolic dysfunction. Ejection fraction 30-35% from hypertensive heart disease. 5. Essential hypertension. 6. Anemia of chronic kidney disease. 7. Emphysema, in a smoker. 8. Chronic nicotine dependence, the patient is an active cigarette smoker. 9. Stage II decubitus ulcer present on admission. 10. Peripheral artery disease. 11. Restless leg syndrome. 12. Urine outflow obstruction, has a Prajapati catheter. 13. Acute urinary tract infection from Acinetobacter, present on admission. 14. Per nephrology, dose of Demadex is to be cut back. The patient completed dose of antibiotic. Will stop the ceftriaxone. Await placement.
[2016-03-07 21:34] LABS: Glucose,Whole Blood 211 mg/dL (75-99)
[2016-03-08 07:47] LABS: Glucose,Whole Blood 102 mg/dL (75-99)
[2016-03-08 07:55] VITALS: BP 159/67; RESP 16; TEMP 98
[2016-03-08] MEDS: INSULIN LISPRO (humaLOG) 300 UNIT/3 ML VIAL SQ SCH (08:07)
[2016-03-08] MEDS: METOPROLOL TARTRATE 25 MG TAB PO SCH (08:08)
[2016-03-08] MEDS: SEVELAMER 800 MG TAB PO SCH (08:08)
[2016-03-08] MEDS: PANTOPRAZOLE 40 MG TABLET PO SCH (08:08)
[2016-03-08] MEDS: ALLOPURINOL 100 MG TAB PO SCH (08:08)
[2016-03-08 08:40] LABS: Calcium 8.1 mg/dL (8.4-10.2); Potassium 5.1 mmol/L (3.5-5.1)
[2016-03-08] MEDS: IPRATROPIUM-ALBUTEROL 3 ML NEB INHALATION SCH (08:41)
[2016-03-08 08:58] VITALS: PULSE 80
[2016-03-08] MEDS: FUROSEMIDE 40 MG TAB PO SCH (09:07)
--- NOTE | 2016-03-09 15:28 | DS ---
DATE OF ADMISSION: 02/27/2016 DATE OF DISCHARGE: 03/08/2016 ADDENDUM: Please see my discharge diagnoses dictated on 03/06/16. The patient clinically is unchanged. Change in medication is that patient's Demadex has been cut back to 40 mg p.o. daily. Clinical examination is unchanged.
== END 2016-03-08 10:20 | DRG 377 ==
LOC: EC 20:46 → 6SEL 23:12 → 5MS5E 02-28 13:49
PROVIDERS: ADMIT Hospitalist; ATTEND Hospitalist
PROC: 30233N1 Transfusion of Nonautologous Red Blood Cells into Peripheral Vein, Percutaneous Approach (ICD-10-PCS; 2016-02-27)
PROC: 0DJ08ZZ Inspection of Upper Intestinal Tract, Via Natural or Artificial Opening Endoscopic (ICD-10-PCS; principal; 2016-03-02 13:00)
PROC: 0DJD8ZZ Inspection of Lower Intestinal Tract, Via Natural or Artificial Opening Endoscopic (ICD-10-PCS; 2016-03-02 13:00)
DX: K92.2 Gastrointestinal hemorrhage, unspecified (principal); J96.00 Acute respiratory failure, unspecified whether with hypoxia or hypercapnia; N17.0 Acute kidney failure with tubular necrosis; I50.23 Acute on chronic systolic (congestive) heart failure; E87.0 Hyperosmolality and hypernatremia; E87.3 Alkalosis; E87.2 Acidosis; N18.4 Chronic kidney disease, stage 4 (severe); I13.0 Hypertensive heart and chronic kidney disease with heart failure and stage 1 through stage 4 chronic kidney disease, or unspecified chronic kidney disease; D62 Acute posthemorrhagic anemia; N39.0 Urinary tract infection, site not specified; E11.22 Type 2 diabetes mellitus with diabetic chronic kidney disease; I27.2 Other secondary pulmonary hypertension; L89.152 Pressure ulcer of sacral region, stage 2; E11.65 Type 2 diabetes mellitus with hyperglycemia; D63.1 Anemia in chronic kidney disease; E78.00 Pure hypercholesterolemia, unspecified; E78.5 Hyperlipidemia, unspecified; E86.9 Volume depletion, unspecified; E87.5 Hyperkalemia; F17.210 Nicotine dependence, cigarettes, uncomplicated; G25.81 Restless legs syndrome; H54.8 Legal blindness, as defined in USA; I25.10 Atherosclerotic heart disease of native coronary artery without angina pectoris; J43.9 Emphysema, unspecified; K29.70 Gastritis, unspecified, without bleeding; K57.90 Diverticulosis of intestine, part unspecified, without perforation or abscess without bleeding; K64.8 Other hemorrhoids; N13.9 Obstructive and reflux uropathy, unspecified; R01.1 Cardiac murmur, unspecified; I77.89 Other specified disorders of arteries and arterioles; E11.51 Type 2 diabetes mellitus with diabetic peripheral angiopathy without gangrene; B96.89 Other specified bacterial agents as the cause of diseases classified elsewhere; Z79.02 Long term (current) use of antithrombotics/antiplatelets; Z79.82 Long term (current) use of aspirin; Z79.899 Other long term (current) drug therapy; Z66 Do not resuscitate
CPT/HCPCS: 36415; 43235; 71010; 71020; 76770; 80048; 80053; 80061; 81001; 82272; 82550; 82553; 82728; 83036; 83540; 83550; 83690; 83735; 83880; 84100; 84484; 85025; 85027; 85730; 86850; 86900; 86901; 86920; 87077; 87086; 87186; 93005; 93306; 94640; 94760; 99153